=== PATIENT | female | born 1990 | race African-American/Black ===

== ENCOUNTER 2016-12-12 20:06 | Emergency (ER) | payer MEDICAID, SELFPAY ==
[2016-12-12 21:13] LABS: #Basophils 0.1 thou/uL (0.0-0.2); #Eosinphils 0.1 thou/uL (0.0-0.7); #Lymphocytes 2.3 thou/uL (1.20-3.40); #Monocytes 0.5 thou/uL (0.11-0.59); #Neutrophils 5.4 thou/uL (1.40-6.50); %Basophils 0.7 % (0.0-1.0); %Eosinophils 1.1 % (0.0-10.0); %Lymphocytes 28.2 % (21.0-51.0); %Monocytes 5.5 % (0.0-10.0); Hematocrit 36.1 % (36.0-47.0); Mean Platelet Volume 9.1 fL (7.4-10.4); Red Blood Cell (RBC) Count 5.07 mill/uL (4.20-5.40); White Blood Cell (WBC) Count 8.3 thou/uL (4.8-10.8)
[2016-12-12 21:33] LABS: ALT (SGPT) 9 U/L (8-55); AST (SGOT) 12 U/L (5-34); Alkaline Phosphatase 61 U/L (40-150); Anion Gap 14 mmol/L (10-20); BUN (Urea Nitrogen) 10 mg/dL (7.0-18.7); Bilirubin, Total 0.2 mg/dL (0.2-1.2); Calc. Creatinine Clearance 0 mL/min (70-130); Carbon Dioxide 21 mmol/L (22-29); Chloride 105 mmol/L (98-107); Estimated GFR-MDRD Greater than 90; Globulin 3.2 g/dL (2.4-3.5); Lipase 12 U/L (8-78); Protein, Total 7.1 g/dL (6.0-8.3)
[2016-12-12] MEDS ORDERED: Ondansetron HCl/PF 4 MG/2 ML Vial ONE (21:53)
[2016-12-12 22:07] LABS: Bilirubin Negative (Negative); Blood, Urine Negative (Negative); Glucose, Urine (Dipstick) Negative (Negative); Ketone, Urine Negative (Negative); Nitrite Negative (Negative); Protein, Urine (Dipstick) Negative (Neg-Trace)
[2016-12-12 22:10] LABS: Bacteria/HPF None Seen HPF (None Seen); Hyaline Casts/LPF 0-3 HYALINE CAST LPF (0-3 Hyaline)
== END 2016-12-12 23:34 | disposition home or self-care (01) ==
LOC: ERS 20:06
DX: O21.1 Hyperemesis gravidarum with metabolic disturbance (principal); O99.331 Smoking (tobacco) complicating pregnancy, first trimester; F17.210 Nicotine dependence, cigarettes, uncomplicated; Z3A.01 Less than 8 weeks gestation of pregnancy
CPT/HCPCS: 36415; 80053; 81003; 81015; 81025; 83690; 85025; 96361; 96374; J2405

== ENCOUNTER 2017-02-01 19:26 | Emergency (ER) | payer MEDICAID ==
[2017-02-01 20:04] LABS: Bilirubin Negative (Negative); Blood, Urine Negative (Negative); Glucose, Urine (Dipstick) Negative (Negative); Ketone, Urine Negative (Negative); Nitrite Negative (Negative); Protein, Urine (Dipstick) Negative (Neg-Trace)
[2017-02-01 20:07] LABS: Bacteria/HPF None Seen HPF (None Seen); Hyaline Casts/LPF 0-3 HYALINE CAST LPF (0-3 Hyaline); RBC/HPF 0-3 HPF (0-3); WBC/HPF 21-50 HPF (0-3)
== END 2017-02-01 20:53 | disposition left against medical advice (07) ==
LOC: ERS 19:26
DX: Z53.21 Procedure and treatment not carried out due to patient leaving prior to being seen by health care provider (principal)
CPT/HCPCS: 81003; 81015

== ENCOUNTER 2017-02-08 16:07 | Emergency (ER) | payer MEDICAID, OTHER ==
[2017-02-08 17:45] LABS: Bilirubin Negative (Negative); Blood, Urine Negative (Negative); Clarity CLEAR (Clear); Glucose, Urine (Dipstick) Negative (Negative); Leukocyte Small (Negative); Nitrite Negative (Negative); Protein, Urine (Dipstick) Negative (Neg-Trace); Specific Gravity, Urine 1.026 (1.002-1.036); pH, Urine 6.5 (5.0-9.0)
[2017-02-08 17:46] LABS: Pregnancy Test - Urine (BHCG) POSITIVE (Negative)
[2017-02-08 17:47] LABS: Pregu Control Background? CLEAR/WHITE (CLR/WHITE); Pregu Control Bar Appear? YES (CONTROL BAR); Specific Gravity 1.026 (1.002-1.036)
[2017-02-08 17:48] LABS: Bacteria/HPF Rare-Few HPF (None Seen); Hyaline Casts/LPF 4-6 HYALINE CAST LPF (0-3 Hyaline); Pathc Cast-AUWi Flag 0.54 (0-2.49); RBC/HPF 0-3 HPF (0-3); Squamous Epithelial 0-3 HPF (0-3); WBC/HPF 21-50 HPF (0-3)
[2017-02-08 17:49] LABS: ALT (SGPT) 11 U/L (8-55); AST (SGOT) 14 U/L (5-34); Alkaline Phosphatase 68 U/L (40-150); Anion Gap 11 mmol/L (10-20); BUN (Urea Nitrogen) 7 mg/dL (7.0-18.7); Bilirubin, Total 0.3 mg/dL (0.2-1.2); Calc. Creatinine Clearance 0 mL/min (70-130); Calcium 9.8 mg/dL (7.8-10.44); Carbon Dioxide 23 mmol/L (22-29); Chloride 104 mmol/L (98-107); Estimated GFR-MDRD Greater than 90; Globulin 3.8 g/dL (2.4-3.5); Glucose 77 mg/dL (70-105); Potassium 3.8 mmol/L (3.5-5.1); Protein, Total 7.8 g/dL (6.0-8.3); Sodium 134 mmol/L (136-145)
[2017-02-08 17:50] LABS: #Basophils 0.1 thou/uL (0.0-0.2); #Eosinphils 0.1 thou/uL (0.0-0.7); #Lymphocytes 1.3 thou/uL (1.20-3.40); #Monocytes 0.5 thou/uL (0.11-0.59); #Neutrophils 4.7 thou/uL (1.40-6.50); %Basophils 0.8 % (0.0-1.0); %Eosinophils 1.4 % (0.0-10.0); %Lymphocytes 19.2 % (21.0-51.0); %Monocytes 7.8 % (0.0-10.0); %Neutrophils 70.8 % (42.0-75.0); Anisocytosis SLIGHT = 6-15 cells (100X) (0-5/hpf); Hemoglobin 11.9 g/dL (12.0-16.0); MDiff Complete? YES; Mean Corpuscular HGB CONC 31.9 g/dL (32.0-36.0); Mean Corpuscular Hemoglobin 22.7 pg (27.0-31.0); Mean Corpuscular Volume 71.1 fl (81.0-99.0); Mean Platelet Volume 9.9 fL (7.4-10.4); Microcytosis SLIGHT = 6-15 cells (100X) (0-5/hpf); Ovalocytes SLIGHT = 2-5 cells (100X) (0-1/hpf); Platelet Count 284 thou/uL (130-400); Poikilocytosis SLIGHT = 6-15 cells (100X) (0-5/hpf); Polychromasia SLIGHT = 2-3 cells (100X) (0-2/hpf); RBC Distribution Width 15.4 % (11.5-14.5); Red Blood Cell (RBC) Count 5.26 mill/uL (4.20-5.40); White Blood Cell (WBC) Count 6.6 thou/uL (4.8-10.8)
[2017-02-08] MEDS ORDERED: Metoclopramide HCl 10 MG/2 ML VIAL ONE (19:07)
== END 2017-02-08 20:26 | disposition home or self-care (01) ==
LOC: ERS 16:07
DX: O21.9 Vomiting of pregnancy, unspecified (principal); O99.331 Smoking (tobacco) complicating pregnancy, first trimester; F17.210 Nicotine dependence, cigarettes, uncomplicated; Z3A.13 13 weeks gestation of pregnancy
CPT/HCPCS: 36415; 80053; 81003; 81015; 81025; 83690; 85025; 87086; 87804; 96365; J2765

== ENCOUNTER 2017-03-26 18:12 | Emergency (ER) | payer MEDICAID, OTHER ==
[2017-03-26 18:49] LABS: #Eosinphils 0.1 thou/uL (0.0-0.7); #Lymphocytes 1.6 thou/uL (1.20-3.40); #Monocytes 0.8 thou/uL (0.11-0.59); #Neutrophils 9.7 thou/uL (1.40-6.50); %Basophils 0.1 % (0.0-1.0); %Eosinophils 0.6 % (0.0-10.0); %Lymphocytes 13.2 % (21.0-51.0); %Monocytes 6.6 % (0.0-10.0); %Neutrophils 79.5 % (42.0-75.0); Hemoglobin 11.3 g/dL (12.0-16.0); Mean Corpuscular HGB CONC 31.5 g/dL (32.0-36.0); Mean Corpuscular Hemoglobin 22.5 pg (27.0-31.0); Mean Corpuscular Volume 71.3 fl (81.0-99.0); Mean Platelet Volume 9.9 fL (7.4-10.4); Platelet Count 292 thou/uL (130-400); RBC Distribution Width 15.4 % (11.5-14.5); Red Blood Cell (RBC) Count 5.02 mill/uL (4.20-5.40); White Blood Cell (WBC) Count 12.1 thou/uL (4.8-10.8)
[2017-03-26 19:10] LABS: ALT (SGPT) 11 U/L (8-55); AST (SGOT) 13 U/L (5-34); Albumin 3.7 g/dL (3.5-5.0); Alkaline Phosphatase 84 U/L (40-150); Anion Gap 12 mmol/L (10-20); BUN (Urea Nitrogen) 9 mg/dL (7.0-18.7); Bilirubin, Total 0.2 mg/dL (0.2-1.2); Calc. Creatinine Clearance 0 mL/min (70-130); Calcium 9.3 mg/dL (7.8-10.44); Carbon Dioxide 24 mmol/L (22-29); Chloride 104 mmol/L (98-107); Estimated GFR-MDRD Greater than 90; Globulin 3.8 g/dL (2.4-3.5); Glucose 78 mg/dL (70-105); Potassium 3.8 mmol/L (3.5-5.1); Protein, Total 7.5 g/dL (6.0-8.3); Sodium 136 mmol/L (136-145)
[2017-03-26 20:10] LABS: Bilirubin Negative (Negative); Blood, Urine Negative (Negative); Clarity CLOUDY (Clear); Glucose, Urine (Dipstick) Negative (Negative); Leukocyte Moderate (Negative); Nitrite Negative (Negative); Protein, Urine (Dipstick) Trace mg/dL (Neg-Trace); Specific Gravity, Urine 1.031 (1.002-1.036)
[2017-03-26 20:13] LABS: Bacteria/HPF 1+ HPF (None Seen); Hyaline Casts/LPF 4-6 HYALINE CAST LPF (0-3 Hyaline); Pathc Cast-AUWi Flag 0.27 (0-2.49); WBC/HPF 21-50 HPF (0-3)
--- NOTE | 2017-04-07 18:02 | EKG ---
Test Reason : LIGHTHEADEDNESS Blood Pressure : / mmHG Vent. Rate : 069 BPM Atrial Rate : 069 BPM P-R Int : 142 ms QRS Dur : 072 ms QT Int : 348 ms P-R-T Axes : 063 -03 005 degrees QTc Int : 372 ms Normal sinus rhythm Cannot rule out Anterior infarct , age undetermined Abnormal ECG Confirmed by KENYA VILLA, RAYNA ([id number]), senior editor JUDAH GASTON ([id number]) on 04/07/2017 6:02:06 PM Referred By: TRIAGE Confirmed By:RAYNA ZAMBRANO MD
== END 2017-03-26 21:34 | disposition home or self-care (01) ==
LOC: ERS 18:12
DX: E86.0 Dehydration (principal); R55 Syncope and collapse; F17.210 Nicotine dependence, cigarettes, uncomplicated
CPT/HCPCS: 36415; 80053; 81003; 81015; 82550; 84702; 85025; 87086; 93005

== ENCOUNTER 2017-04-09 07:32 | Emergency (ER) | payer OTHER ==
[2017-04-09] MEDS ORDERED: Lidocaine 1% (PF) 30 ML VIAL ONE (08:08)
[2017-04-09] MEDS ORDERED: Adacel (T-DAP) 0.5 ML VIAL ONE (08:17)
== END 2017-04-09 09:46 | disposition home or self-care (01) ==
LOC: ERS 07:32
DX: L02.211 Cutaneous abscess of abdominal wall (principal); F17.210 Nicotine dependence, cigarettes, uncomplicated; Z79.82 Long term (current) use of aspirin
CPT/HCPCS: 10061; 90471; 90715; J2001

== ENCOUNTER 2017-04-23 18:26 | Day surgery (SDC) | payer OTHER ==
[2017-04-23 18:56] VITALS: BMI 36.8
--- NOTE | 2017-04-23 19:47 | PDOC.LDHP ---
Labor and Delivery H&P Chief complaint: abdominal pain HPI: This is a 26 y/o @ 23.4 WGA who presents for cramping abdominal pain. The patient reports that she has had cramping type pain in her lower abdomen since having sex last night. She also reports pain in her vaginal area. She describes the sex as painful. She denies any vaginal discharge, vaginal bleeding, loss of fluid, decreased movement. She has not had any vision changes, N/V, upper abdominal pain, or leg swelling. Current gestational age (weeks): 23 (4 days) Due date: 08/16/17 Grav: 2 Para: 1 OB History Details: First ended in a term 2/2 an eclamptic seizure. The patient has had some elevated BP during this as well. Current complications: gestational hypertension Abnormal US findings: No Past Medical History: None Current medications: pre- vitamins, other (aspirin) Previous surgical history: low tranverse CS Allergies/Adverse Reactions: Allergies Allergy/AdvReac Type Severity Reaction Status Date / Time No Known Allergies Allergy Verified 04/23/17 18:51 Social history: tobacco use (2 cigarettes per day since 19 years old) - Physical Exam Vital signs reviewed and normal: yes General: NAD Heart: RRR Lungs: CTAB Abdomen: gravid Extremeties: no edema FHT: category 1, variability present [place] contractions every: None - Vaginal Exam cm dilated: 0 Effacement: 0% Station: -3 - OB Labs Blood type: unknown RH: unknown Antibody Screen: unknown HIV: unknown RPR: unknown HEPSAg: unknown 1 hour GCT: unknown 3 hour GTT: unknown GBS: unknown - Assessment This is a 26 y/o @ 23.4 WGA who presents for cramping abdominal pain after sex. Will r/o PTL. - Plan -: R/O pre-term labor, the patient's cervical check was closed/thick/and high. Her cervical length was 3.8 cm on ultrasound. FFN could not be checked as the patient has had sex within the past 24 hours. -VP3 -UA -NST dispo: likely home pending results of UA and VP3
[2017-04-23 20:10] LABS: Bilirubin Negative (Negative); Blood, Urine Negative (Negative); Clarity CLEAR (Clear); Glucose, Urine (Dipstick) Negative (Negative); Leukocyte Trace (Negative); Nitrite Negative (Negative); Protein, Urine (Dipstick) Negative (Neg-Trace); Specific Gravity, Urine 1.015 (1.002-1.036)
[2017-04-23 20:13] LABS: Bacteria/HPF None Seen HPF (None Seen); Hyaline Casts/LPF 0-3 HYALINE CAST LPF (0-3 Hyaline); RBC/HPF 0-3 HPF (0-3); Squamous Epithelial 0-3 HPF (0-3); WBC/HPF 0-3 HPF (0-3)
--- NOTE | 2017-04-23 20:39 | ULT ---
OB ULTRASOUND: History: 23-week with cramping. FINDINGS: Single viable intrauterine noted. Gestational age by ultrasound 24 weeks 4 days. The biomet ry measurements are consistent. heart rate: 150 beats/minute Placenta: Posterior Presentation: Vertex Amniotic fluid: Adequate MIRZA: Recorded at 8.8 cm Cervical length: 3.8 cm Limited anatomy evaluation. Visualized intracranial contents, four chamber heart, stomach, kidn eys, cord insertion, bladder and three vessel cord were all imaged. IMPRESSION: 24 week 4 day gestation by ultrasound measurement. No abnormality identified. POS: [facility]
== END 2017-04-23 21:30 | disposition home or self-care (01) ==
LOC: L&D/OP 18:26
PROVIDERS: ATTEND Obstetrics & Gynecology
DX: O99.89 Other specified diseases and conditions complicating pregnancy, childbirth and the puerperium (principal); R10.30 Lower abdominal pain, unspecified; R10.2 Pelvic and perineal pain; O13.2 Gestational [pregnancy-induced] hypertension without significant proteinuria, second trimester; O99.332 Smoking (tobacco) complicating pregnancy, second trimester; F17.210 Nicotine dependence, cigarettes, uncomplicated; Z79.82 Long term (current) use of aspirin; Z79.899 Other long term (current) drug therapy; Z3A.23 23 weeks gestation of pregnancy
CPT/HCPCS: 76815; 81001; 87480; 87510; 87660; 99285

== ENCOUNTER 2017-06-06 17:00 | Emergency (ER) | payer OTHER ==
[2017-06-06 19:29] LABS: Bilirubin Negative (Negative); Blood, Urine Negative (Negative); Clarity CLEAR (Clear); Glucose, Urine (Dipstick) Negative (Negative); Leukocyte Moderate (Negative); Nitrite Negative (Negative); Protein, Urine (Dipstick) Negative (Neg-Trace); Specific Gravity, Urine 1.025 (1.002-1.036)
[2017-06-06 19:31] LABS: Bacteria/HPF Rare-Few HPF (None Seen); Hyaline Casts/LPF 4-6 HYALINE CAST LPF (0-3 Hyaline); Pathc Cast-AUWi Flag 0.72 (0-2.49); Squamous Epithelial 0-3 HPF (0-3); WBC/HPF 21-50 HPF (0-3)
[2017-06-06 20:22] LABS: Hemoglobin 10.7 g/dL (12.0-16.0); Mean Corpuscular HGB CONC 31.9 g/dL (32.0-36.0); Mean Corpuscular Volume 69.1 fl (81.0-99.0); Platelet Count 260 thou/uL (130-400); RBC Distribution Width 16.3 % (11.5-14.5); Red Blood Cell (RBC) Count 4.85 mill/uL (4.20-5.40); White Blood Cell (WBC) Count 10.3 thou/uL (4.8-10.8)
[2017-06-06 20:36] LABS: Anion Gap 13 mmol/L (10-20); BUN (Urea Nitrogen) 7 mg/dL (7.0-18.7); Calc. Creatinine Clearance 0 mL/min (70-130); Carbon Dioxide 21 mmol/L (22-29); Chloride 105 mmol/L (98-107); Estimated GFR-MDRD Greater than 90; Glucose 99 mg/dL (70-105); Potassium 3.7 mmol/L (3.5-5.1); Sodium 135 mmol/L (136-145)
[2017-06-06 20:41] LABS: #Eosinphils 0.1 thou/uL (0.0-0.7); #Lymphocytes 1.8 thou/uL (1.20-3.40); #Monocytes 0.5 thou/uL (0.11-0.59); #Neutrophils 7.9 thou/uL (1.40-6.50); %Basophils 0.3 % (0.0-1.0); %Eosinophils 0.6 % (0.0-10.0); %Lymphocytes 17.6 % (21.0-51.0); %Monocytes 4.5 % (0.0-10.0); %Neutrophils 76.9 % (42.0-75.0); MDiff Complete? YES; Microcytosis SLIGHT = 6-15 cells (100X) (0-5/hpf); PLT Morphology Comment Appears Adequate; Schistocytes SLIGHT = 2-5 cells (100X) (0-1/hpf)
== END 2017-06-06 20:16 | disposition left against medical advice (07) ==
LOC: ERS 17:00
DX: O26.813 Pregnancy related exhaustion and fatigue, third trimester (principal); O99.333 Smoking (tobacco) complicating pregnancy, third trimester; F17.210 Nicotine dependence, cigarettes, uncomplicated; Z3A.29 29 weeks gestation of pregnancy
CPT/HCPCS: 80048; 81003; 81015; 85025; 99284

== ENCOUNTER 2017-06-18 17:20 | Day surgery (SDC) | payer OTHER ==
[2017-06-18 17:56] VITALS: BP 110/64; TEMP 98.5; BMI 39.4
--- NOTE | 2017-06-18 18:53 | PDOC.LDHP ---
Labor and Delivery H&P Chief complaint: other (Dizziness, Elevated BP at work) HPI: 26 year old at 31.4 wks by 9.0 wk ultrasound with RIA of 08/16/2017 presents with dizziness and elevated BP at work. Patient states she had her BP checked by the nurse and it was noted to be 161/100. Since being on L&D her BP' s have been within normal range. This has happened once before in this current and she had a preeclampsia workup done at that time which was negative. Currently, patient denies any lightheadedness, RUQ pain, headache, vision changes, or edema. She does have a history of eclampsia in her prior . She has been on ASA therapy since early in . ROS: General: Endorses fatigue. Denies fever or chills. HEENT: Denies vision changes, nasal congestion, rhinorrhea Cards: Denies chest pain or palpitations. Endorses history of heart murmur. Resp: Denies cough or shortness of breath : Denies dysuria. Endorses increased urinary frequency. 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 Endorses white vaginal discharge and itching in vaginal area. Psych: Denies anxiety or depression. Current gestational age (weeks): 31 (31.4) Due date: 08/16/17 Dating criteria: first trimester ultrasound (9.0 wk) Grav: 2 Para: 1 OB History Details: 1. Hx of eclampsia in 2. Prior C/S 3. Anemia of Current complications: other (anemia of ) Abnormal US findings: No Current medications: pre-marlo vitamins, other (ASA) Previous surgical history: low tranverse CS Allergies/Adverse Reactions: Allergies Allergy/AdvReac Type Severity Reaction Status Date / Time No Known Allergies Allergy Verified 06/18/17 17:56 Social history: none - Physical Exam Vital signs reviewed and normal: yes (BP 107/59) General: NAD, resting Heart: RRR Lungs: nonlabored breathing Abdomen: gravid Extremeties: no edema FHT: category 1, variability present [place] contractions every: none - OB Labs Blood type: O RH: positive Antibody Screen: negative HIV: negative RPR: negative HEPSAg: negative 1 hour GCT: negative GBS: unknown Rubella: immune - Assessment 1. Elevated BP readings with history of eclampsia in prior 2. Vaginal itching - Plan Plan: observation in L&D -: Elevated BP readings with history of eclampsia in prior - UA to evaluate for urine infection - Urine protein dipstick - NST reassuring; category I strip - BP since being on L&D has been nml Vaginal itching - VP3 pending - Will call patient with results and treat as necessary Dispo: Will await results of urine dipstick. If urine protein is trace, then will discharge pt home with precautions. Will call patient with results of VP3 and treat accordingly.
[2017-06-18 19:34] LABS: Bilirubin Negative (Negative); Blood, Urine Negative (Negative); Clarity TURBID (Clear); Glucose, Urine (Dipstick) Negative (Negative); Leukocyte Small (Negative); Nitrite Negative (Negative); Protein, Urine (Dipstick) Trace mg/dL (Neg-Trace); Specific Gravity, Urine 1.024 (1.002-1.036); pH, Urine 7.5 (5.0-9.0)
[2017-06-18 19:35] LABS: Bacteria/HPF None Seen HPF (None Seen); Hyaline Casts/LPF 4-6 HYALINE CAST LPF (0-3 Hyaline); Pathc Cast-AUWi Flag 0.43 (0-2.49)
[2017-06-18 19:46] LABS: Crystals/HPF 2+ AMORPH PHOS HPF (Negative)
[2017-06-18 19:47] LABS: Renal Epithelial None Seen HPF (0-3); Transitional Epithelial NONE SEEN HPF (0-3)
[2017-06-21 10:24] LABS: Chlamydia trachomatis by NAA Negative (Negative)
== END 2017-06-18 20:15 | disposition home or self-care (01) ==
LOC: L&D/OP 17:20
PROVIDERS: ATTEND Obstetrics & Gynecology
DX: O99.89 Other specified diseases and conditions complicating pregnancy, childbirth and the puerperium (principal); R03.0 Elevated blood-pressure reading, without diagnosis of hypertension; O99.013 Anemia complicating pregnancy, third trimester; D64.9 Anemia, unspecified; Z87.59 Personal history of other complications of pregnancy, childbirth and the puerperium; Z3A.31 31 weeks gestation of pregnancy; Z79.82 Long term (current) use of aspirin; Z79.899 Other long term (current) drug therapy; Z98.891 History of uterine scar from previous surgery
CPT/HCPCS: 81003; 81015; 87480; 87491; 87510; 87591; 87660; 99284

== ENCOUNTER 2017-06-21 19:16 | Day surgery (SDC) | payer OTHER ==
[2017-06-21] MEDS ORDERED: metroNIDAZOLE 500 MG TAB PO SCH (19:45)
[2017-06-21 20:02] VITALS: BMI 39.4
[2017-06-21 20:02] LABS: Amnisure Internal Control QC ACCEPTABLE (ACCEPTABLE); Amnisure Test No Membranes Rupture (No Rupture)
--- NOTE | 2017-06-21 20:37 | PRG ---
DATE OF SERVICE: 06/21/2017 PRIMARY OB: Clinic. HISTORY OF PRESENT ILLNESS: The patient is a 26-year-old G2, P1 female with an intrauterine pregnanc y at 32 weeks who was brought to the ER by EMS after experiencing some sudden leakage of fluid at formerly [facility]. Upon arrival, the patient reported that outside the single episode, she is not leaking fluid any longer. Denies any uterine contractions, vaginal bleeding. She does report some discomfort and pres sure with activity. The patient reports she was here a couple days ago, was diagnosed with a yeast i nfection and Trichomonas, but has not started her antibiotic, but did start her Monistat. The patien t reports that she had a child delivered by after an eclamptic seizure at term with her pre vious . She denies any past medical problems. PAST SURGICAL HISTORY: Includes a . ALLERGIES: No known drug allergies. MEDICATIONS: vitamins, Monistat and Flagyl not started yet. OB LABS: Unavailable at time of dictation. REVIEW OF SYSTEMS: Patient denies fall, headache. She does report some shortness of breath. Denies chest pain, denies nausea, vomiting, denies diarrhea, constipation. Denies hip problems, knee probl ems, muscle problems. Denies vaginal bleeding or leakage of fluid. Denies urinary urgency or freque ncy. PHYSICAL EXAMINATION: VITAL SIGNS: Blood pressure is 113/68, heart rate of 73, satting 100% on room air, respiratory rate 20. GENERAL: She appears to be in no acute distress. She is alert and oriented, cooperative and pleasan t to interact with. HEENT: Head is normocephalic, atraumatic. CHEST: Clear to auscultation bilaterally. HEART: Regular rate and rhythm. ABDOMEN: Soft, gravid, nontender, and obese. EXTREMITIES: Nontender, nonedematous. PELVIC: Vulva is without mass lesions or erythema. She does have a curd-like discharge in her vagin a on speculum exam and some minimal fluid. She has no leakage of fluid on Valsalva. On cervical exa m, cervix is closed and thick. heart tracing performed for abdominal pain and leakage of fluid. Baseline is noted to be in th e 140s with moderate long-term variability, positive accelerations, no decelerations. She has some i rritability noted on the monitor, but not felt by the patient. AmniSure test is negative. ASSESSMENT AND PLAN: Patient is a 26-year-old G2, P1 female with an intrauterine at 32 wee ks with leakage of fluid at work. There is no evidence of rupture of membranes at this time. Fetus is reassuring. AmniSure test is negative. Patient has been given a dose of Flagyl while she was her e and has been encouraged to crab picker a prescription on her way home today for the Trichomonas. She h as been counseled that her partner needs to be treated completely before having intercourse again to minimize the risk of transmission and reinfection. Patient is being discharged to home.
== END 2017-06-21 20:24 | disposition home or self-care (01) ==
LOC: L&D/OP 19:16
PROVIDERS: ATTEND Obstetrics & Gynecology
DX: O99.89 Other specified diseases and conditions complicating pregnancy, childbirth and the puerperium (principal); O98.313 Other infections with a predominantly sexual mode of transmission complicating pregnancy, third trimester; A59.9 Trichomoniasis, unspecified; O98.813 Other maternal infectious and parasitic diseases complicating pregnancy, third trimester; B37.9 Candidiasis, unspecified; Z79.899 Other long term (current) drug therapy; Z3A.32 32 weeks gestation of pregnancy
CPT/HCPCS: 84112; 99285

== ENCOUNTER 2017-07-07 01:00 | Day surgery (SDC) | payer OTHER ==
[2017-07-07 01:51] VITALS: BP 118/64; TEMP 98.4; BMI 41.1
--- NOTE | 2017-07-07 02:42 | PDOC.LDHP ---
Labor and Delivery H&P Chief complaint: other (few small blood clots) HPI: Ole Butcher is a 26 year old at 34.2 wks by 1T US who presents today with complaints of passing blood clots after urinating at home today. She states that the blood clots are blueberry sized and there were just a few of them. When she wiped, she had a couple smaller clots and a few streaks of blood. She denies any abdominal pain, contractions, loss of fluid, vaginal discharge. She has + FM. When she arrived here and went to the restroom, she had no more blood clots and only small streaks with wiping. She otherwise feels great and states that she is ready to go home. Current gestational age (weeks): 34 (34.2) Due date: 08/16/17 Dating criteria: first trimester ultrasound Grav: 2 Para: 1 (1001) OB History Details: First resulted in LTCS 2/2 eclamptic seizure with no prior history of elevated BP during the Current complications: none Abnormal US findings: No Past Medical History: None Current medications: pre-marlo vitamins, other (Metronidazole for Trich, dianosed about 2 weeks ago) Previous surgical history: low tranverse CS Social history: tobacco use (1 cigarette/day) - Physical Exam Vital signs reviewed and normal: yes (BP 107/58) General: NAD, resting, breathing through contractions Heart: RRR Lungs: CTAB Abdomen: gravid Extremeties: no edema FHT: category 1 [place] contractions every: no contractions - Vaginal Exam cm dilated: 0 Effacement: 0% - OB Labs Blood type: O RH: positive Antibody Screen: negative HIV: negative RPR: negative HEPSAg: negative 1 hour GCT: negative (86) GBS: unknown Rubella: immune - Assessment Third trimester vaginal bleeding - Plan -: (1) Third Trimester Vaginal Bleeding - Minimal vaginal bleeding that resolved in the L&D, no contractions, no LOF, no vaginal discharge - Sterile spec exam showed closed, thick cervix, no bright red blood - Likely secondary to residual cervicitis from trich infection - Instructed to return if bleeding returns or if she experiences abd pain - Discharge home, keep scheduled follow up appointment with PCP at [facility] <Benjamin Marx - Last Filed: 07/07/17 02:33> <Dominic Rowe - Last Filed: 07/07/17 04:05> Allergies/Adverse Reactions: Allergies Allergy/AdvReac Type Severity Reaction Status Date / Time No Known Allergies Allergy Verified 06/21/17 19:57 Attending Addendum - Attending Addendum Date/Time: 07/07/17 0404 I evaluated the patient and discussed the management with Dr. Marx. I agree with the History, Examination, Assessment and Plan. <Dominic Rowe - Last Filed: 07/07/17 04:05>
== END 2017-07-07 02:58 | disposition home or self-care (01) ==
LOC: L&D/OP 01:00
PROVIDERS: ATTEND Obstetrics & Gynecology
DX: O46.93 Antepartum hemorrhage, unspecified, third trimester (principal); O98.313 Other infections with a predominantly sexual mode of transmission complicating pregnancy, third trimester; A59.09 Other urogenital trichomoniasis; O99.333 Smoking (tobacco) complicating pregnancy, third trimester; F17.210 Nicotine dependence, cigarettes, uncomplicated; Z3A.34 34 weeks gestation of pregnancy; Z79.899 Other long term (current) drug therapy; Z79.2 Long term (current) use of antibiotics

== ENCOUNTER 2017-07-15 11:56 | Day surgery (SDC) | payer OTHER ==
[2017-07-15 12:59] VITALS: BMI 41.1
--- NOTE | 2017-07-15 13:58 | PDOC.LDHP ---
Labor and Delivery H&P Chief complaint: abdominal pain HPI: Patient comes in for abdominal pain which starts in the back and radiates around to the front, it started about 2 am this morning. She denies bleeding or christensen of fluid. She feels the baby moving often. No burning with urination. She was treated for trichomonas a 1-2 weeks ago per her report. She came in one week ago for evaluation after passing blueberry sized clots, has not had bleeding since this time. Current gestational age (weeks): 35 (35wk 3 d) Dating criteria: first trimester ultrasound Grav: 2 Para: 1 OB History Details: 1st baby by C/S 2/2 eclamptic seizure, this was 11 years ago IOB labs normal, hgb 10.1 treated for trichomonas 1-2 weeks ago per patient smokes 2 cigarrettes per day Current complications: none Abnormal US findings: No Current medications: pre-marlo vitamins, other (ASA 81mg) Social history: tobacco use (2 cigarettes per day) - Physical Exam Vital signs reviewed and normal: yes General: NAD Heart: RRR Lungs: nonlabored breathing Abdomen: NTTP Extremeties: trace edema (ankles bilaterally) FHT: category 1 [place] contractions every: 1 contraction since visiting L&D - Vaginal Exam cm dilated: 0 Effacement: 0% Station: -3 - OB Labs Antibody Screen: negative HIV: negative RPR: negative HEPSAg: negative 1 hour GCT: negative Urine drug screen: negative Rubella: immune - Assessment 27 yo F at 35wk 3 days not in labor - Plan Plan: other -: F/u in clinic w/ Dr. Grossman this week Continue vitamin, ASA Will f/u on result of VP3 Return for evaluation if patient develops fever, contractions <10 min apart, bleeding, or christensen of fluid. <Regan Edwards - Last Filed: 07/15/17 13:55> <Alanna Mann - Last Filed: 07/15/17 18:05> Allergies/Adverse Reactions: Allergies Allergy/AdvReac Type Severity Reaction Status Date / Time No Known Allergies Allergy Verified 06/21/17 19:57 Attending Addendum - Attending Addendum Date/Time: 07/15/17 0792 I personally evaluated the patient and discussed the management with Dr. Edwards. I agree with the History, Examination, Assessment and Plan documented above. <Alanna Mann - Last Filed: 07/15/17 18:05>
--- NOTE | 2017-07-15 17:03 | PDOC.EVN ---
Event Note - Event Note Event Note: VP3 showed positive Trichomonas, asymptomatic candidiasis Will treat trichomonas, called patient to inform her to have partner be checked and treated as well Sent Flagyl 1g BID for 1 day
== END 2017-07-15 14:40 | disposition home or self-care (01) ==
LOC: L&D/OP 11:56
PROVIDERS: ATTEND Obstetrics & Gynecology
DX: O98.813 Other maternal infectious and parasitic diseases complicating pregnancy, third trimester (principal); O99.333 Smoking (tobacco) complicating pregnancy, third trimester; A59.9 Trichomoniasis, unspecified; Z3A.35 35 weeks gestation of pregnancy
CPT/HCPCS: 87480; 87510; 87660; 99283

== ENCOUNTER 2017-08-06 05:19 | Inpatient (IN) | payer OTHER ==
[2017-08-06 05:52] VITALS: BMI 42.4
[2017-08-06] MEDS ORDERED: Promethazine HCl 25 MG/ML VIAL IM PRN ×2 (06:40→08:32)
[2017-08-06] MEDS ORDERED: Ondansetron HCl/PF 4 MG/2 ML Vial IVP PRN ×3 (06:40→08:32)
[2017-08-06] MEDS ORDERED: Lactated Ringer's 1,000 ML IV SCH (06:45)
[2017-08-06] MEDS ORDERED: Butorphanol Tartrate 1 MG/ML VIAL SLOW IVP PRN (06:54)
[2017-08-06] MEDS ORDERED: Acetaminophen 500 MG TAB PO PRN (06:54)
[2017-08-06] MEDS ORDERED: CEFAZOLIN/Water 2 GM/20 ML SYRINGE SLOW IVP SCH (07:00)
--- NOTE | 2017-08-06 07:03 | PDOC.LDHP ---
Labor and Delivery H&P Chief complaint: contractions HPI: 27 yo @ 38.4 by 9 week us presents for painful contractions since last evening that have been increasing in frequency and strength over the last 2 hours. Previous resulted in c section 2/2 eclampsia. Some mildly elevated BP so far this , but otherwise less than 130/80. Today reports movement, denies headache, changes in vision, nvdc, epigastric/ ruq abdominal pain, denies lof and vaginal pain/bleeding. Current gestational age (weeks): 38 (+4) Due date: 08/16/17 Dating criteria: first trimester ultrasound (9.0 week US) Grav: 2 Para: 1 Current complications: none Abnormal US findings: No Current medications: pre-marlo vitamins, other (aspirin d/c 1 month ago) Previous surgical history: low tranverse CS Social history: none - Physical Exam Abnormal vital signs: elevated BP General: other (mildly distressed, uncomfortable with contractions) Heart: RRR Lungs: nonlabored breathing Abdomen: NTTP Extremeties: other (pateller reflexes 3+, no clonus) FHT: category 2, absent or minimal variables (baseline HR 140) [place] contractions every: 5 min - Vaginal Exam cm dilated: 1 Effacement: 0% Station: -3 - OB Labs Blood type: O RH: positive Antibody Screen: negative HIV: negative RPR: negative HEPSAg: negative 1 hour GCT: negative GBS: unknown Urine drug screen: not done Rubella: immune - Assessment L&D Assessment: term patient in labor - Plan Plan: admit to L&D, to OR for section, informed consent obtained, anesthesia consult for pain management -: 1) TIUP in labor: -admit to l&d to OR for repeat section, was scheduled for repeat CS in 3 days and previously counseled on vs repeat CS; desires repeat CS - pt had elevated BP with new onset LE pitting edema, check CMP, CBC, urine protein/creatinine; no severe features - mag if indicated - pre-operative abx ordered - 1L LR - POC bedside US showed posterior/fundal placenta, vertex presentation, fluid pocket >2cm and good heart movement -cat 2 2/2 period of minimal variability baseline 140 w/o late deceleration or variable decels 2) Elevated BP w/ h/o eclampsia - Pre e labs ordered - To OR for delivery -anesthesia for repeat c section consulted <Kamlesh Mir - Last Filed: 08/06/17 07:30> <Dominic Rowe - Last Filed: 08/06/17 08:39> Allergies/Adverse Reactions: Allergies Allergy/AdvReac Type Severity Reaction Status Date / Time No Known Allergies Allergy Verified 06/21/17 19:57 Attending Addendum - Attending Addendum Date/Time: 08/06/17 0839 I personally evaluated the patient and discussed the management with Dr. Mir I agree with the History, Examination, Assessment and Plan and will proceed with repeat C/S.. <Dominic Rowe - Last Filed: 08/06/17 08:39>
[2017-08-06] MEDS ORDERED: Bicitra 30 ML UDCUP ONE (07:18)
--- NOTE | 2017-08-06 07:18 | PDOC.EVN ---
Event Note - Event Note Event Note: at 38 weeks with h/o previous presents with painful UCs and nonreassuring FHTs. Will proceed with repeat C/S. Consent on chart.
[2017-08-06] MEDS ORDERED: Fentanyl 100 MCG/2 ML VIAL ONE (07:29)
[2017-08-06] MEDS ORDERED: Morphine PF 1 MG/ML SYR ONE (07:29)
[2017-08-06] MEDS ORDERED: Oxytocin 10 UNITS/ML VIAL ONE (07:30)
[2017-08-06] MEDS ORDERED: PHENYLEPHRINE-NS 100 MCG/ML 10 ML SYRINGE ONE (07:30)
[2017-08-06] MEDS ORDERED: Bupivacaine 0.75% W/DEXTROSE 8.25% 2 ML AMP ONE (07:30)
[2017-08-06] MEDS ORDERED: Lidocaine 1% PF 5 ML VIAL ONE (07:30)
[2017-08-06] MEDS ORDERED: Ketorolac Tromethamine 30 MG/ML VIAL ONE ×2 (07:31→12:30)
[2017-08-06 07:32] LABS: Hemoglobin 10.3 g/dL (12.0-16.0); Mean Corpuscular HGB CONC 31.5 g/dL (32.0-36.0); Mean Corpuscular Hemoglobin 21.4 pg (27.0-31.0); Mean Corpuscular Volume 67.8 fL (78.0-98.0); Mean Platelet Volume 7.5 fL (7.4-10.4); Platelet Count 217 thou/uL (130-400); RBC Distribution Width 19.1 % (11.5-14.5); White Blood Cell (WBC) Count 10.6 thou/uL (4.8-10.8)
[2017-08-06 07:40] LABS: Bilirubin Negative (Negative); Blood, Urine Negative (Negative); Clarity CLEAR (Clear); Glucose, Urine (Dipstick) Negative (Negative); Leukocyte Moderate (Negative); Nitrite Negative (Negative); Protein, Urine (Dipstick) 30 mg/dL (Neg-Trace); Specific Gravity, Urine 1.026 (1.002-1.036); pH, Urine 6.5 (5.0-9.0)
[2017-08-06 07:42] LABS: RBC/HPF 0-3 HPF (0-3)
[2017-08-06 07:57] LABS: ALT (SGPT) 22 U/L (8-55); AST (SGOT) 19 U/L (5-34); Albumin 3.2 g/dL (3.5-5.0); Alkaline Phosphatase 221 U/L (40-150); Anion Gap 16 mmol/L (10-20); BUN (Urea Nitrogen) 8 mg/dL (7.0-18.7); Bilirubin, Total 0.2 mg/dL (0.2-1.2); Calc. Creatinine Clearance 198 mL/min (70-130); Calcium 9.1 mg/dL (7.8-10.44); Carbon Dioxide 19 mmol/L (22-29); Chloride 107 mmol/L (98-107); Estimated GFR-MDRD Greater than 90; Globulin 3.4 g/dL (2.4-3.5); Glucose 96 mg/dL (70-105); Potassium 4.7 mmol/L (3.5-5.1); Protein, Total 6.6 g/dL (6.0-8.3); Sodium 137 mmol/L (136-145)
[2017-08-06 08:14] LABS: HBSAg Index 0.16 S/CO (0-0.99); Hep B Surf Ag Non-Reactive S/CO (NonReactive); Syphilis Antibody Nonreactive (Nonreactive); Syphilis Antibody Index 0.06 S/CO (<1.00 Non-Reactive)
[2017-08-06 08:17] LABS: Bacteria/HPF 1+ HPF (None Seen); Hyaline Casts/LPF 0-3 HYALINE CAST LPF (0-3 Hyaline)
[2017-08-06 08:18] LABS: Crystals/HPF None Seen HPF (Negative)
[2017-08-06] MEDS ORDERED: Promethazine HCl 25 MG/ML VIAL ONE (08:18)
[2017-08-06 08:27] LABS: HBSAg Index 0.09 S/CO (0-0.99); HIV (1/2) Antibody/Antigen Non-Reactive (NonReactive); HIV 1/2 INDEX 0.08 S/CO (<1.00); Hep B Surf Ag Non-Reactive S/CO (NonReactive)
[2017-08-06] MEDS ORDERED: Acetaminophen 1,000 MG in Premix Bag 1 BAG IVPB PRN (08:32)
[2017-08-06] MEDS ORDERED: Promethazine HCl 25 MG SUPP PR PRN (08:32)
[2017-08-06] MEDS ORDERED: Eucerin (Mineral Oil/Petrolatum,White) 30 gm Jar TOP PRN (08:32)
[2017-08-06] MEDS ORDERED: Naloxone HCl 0.4 mg/ml Vial IV PRN (08:32)
[2017-08-06] MEDS ORDERED: Naloxone HCl 0.4 mg/ml Vial IVP PRN ×2 (08:32)
[2017-08-06] MEDS ORDERED: diphenhydrAMINE 50 MG/ML VIAL IVP PRN (08:32)
[2017-08-06] MEDS ORDERED: Communication Order-Pharmacy FS SCH (08:45)
[2017-08-06 08:57] LABS: Creatinine, Urine 277.72 mg/dL (47-110)
--- NOTE | 2017-08-06 09:19 | PDOC.OP ---
Operative Note - Operative Note Operative Note: Procedure: Repeat low transverse caesarean section Preoperative Diagnosis: 1)Term intrauterine , in labor 2)Previous x 1 3)Non-reassuring FHTs with minimal variability 4)Elevated blood pressures 5)H/O Eclampsia Postoperative Diagnosis: 1)same as above Anesthesia: spinal Indications: The patient is a 27yo at 38 weeks 4 days gestation who presented to [facility] with painful regular contractions. Upon arrival, pt was noted to have elevated BPs in the 145/90s and a single SBP 160s. Additionally, noted to have minimal variability on heart monitoring. Pt was scheduled for RLTCS on 08/09 at 39wks 0days. Procedure in Detail: After risks, benefits, and alternatives were explained to the patient, she gave informed consent. Pre-operative antibiotics included Cefazolin 2 gram IV. The patient was taken to the operating room and spinal anesthesia was initiated. She was placed in the supine position with a left tilt and prepped and draped in usual sterile fashion. A Pfannenstiel incision was made with a scalpel and carried down to the level of the fascia which was sharply nicked. The fascial cut was extended bilaterally with Jamison sissors. The inferior and superior edges of the cut fascial edges were elevated with Nimesh clamps and the underlying rectus muscles were bluntly dissected free. The recti were divided digitally and retracted manually. Omentum was noted to be adhered to the peritoneum, and adhesions were taken down bluntly and with bovie cautery. The peritoneum was entered bluntly and retracted manually. Bladder blade was placed. Bladder flap was created with Metzenbaum scissors. A low transverse score was made with the scalpel and the uterus was entered in the midline with the scalpel. Clear fluid was seen. The hysterotomy was extended manually. The was noted to be vertex and was easily delivered by fundal pressure. Mouth and nares were bulb suctioned. Cord clamped and cut and grossly normal female infant was handed to waiting nurse. Cord blood was obtained. Placenta was extracted with fundal pressure, found to be intact with 3 vessel cord and was discarded. The uterus was externalized and the endometrium was curetted with a dry lap. The bladder blade was replaced and the uterus was closed with a running locking 0-monocryl suture. Following this hemostasis was noted. The abdomen was inspected and suctioned free of clots. The surrounding anatomy including ovaries and tubes were noted to be normal. The uterus was then internalized and the hysterotomy was again noted to be hemostatic. A small fascial defect was identified and repaired with 0-vicryl running locking suture. The rectus was then reapproximated with 2 simple interrupted 0-vicryl sutures. The fascia was then closed with a running non- locking 0-PDS suture. The subcutaneous tissue was irrigated and small bleeders were bovied with adequate hemostasis noted. The subcutaneous tissue was then closed with simple interrupted 3-0 plain gut suture. The skin was closed with 4- 0 monocryl running subcuticular suture and dermabond was placed topically. A pressure dressing was placed. All counts were correct. The patient tolerated the procedure well and was taken to the recovery room in stable condition. Estimated Blood Loss: 600 ml Complications: None Specimens: Cord blood sent to lab for blood type Findings: Grossly normal female infant (3035g) born at 0805 on [birth year] with apgars of 8 & 9. Grossly normal placenta with 3 vessel cord discarded. Drains: Lindquist to gravity draining clear urine <Gisele Sanon - Last Filed: 08/06/17 09:03> Attending Addendum - Attending Addendum Date/Time: 08/08/170 Present to attend this patient. I agree with Dr. Sanon's note above. <Dominic Rowe - Last Filed: 08/08/17 22:22>
[2017-08-06 09:28] LABS: HBSAB Concentration 12.55 mIU/mL; Hep B Surf AB Reactive (NonReactive)
[2017-08-06] MEDS ORDERED: NS / Oxytocin 40 units/1000ml 1,000 ML IV SCH (11:31)
[2017-08-06] MEDS ORDERED: Measles/Mumps/Rubella 10 MCG/0.5 ML VIAL SC ONE (11:31)
[2017-08-06] MEDS ORDERED: Adacel (T-DAP) 0.5 ML VIAL IM ONE (11:31)
[2017-08-06] MEDS ORDERED: Bisacodyl 10 MG SUPP PR PRN (11:31)
[2017-08-06] MEDS ORDERED: Lanolin Ointment 7 GM TUBE TOP PRN (11:31)
[2017-08-06] MEDS ORDERED: Ketorolac Tromethamine 30 MG/ML VIAL IVP SCH (12:00)
[2017-08-06] MEDS ORDERED: Ibuprofen 800 MG TAB PO SCH (14:00)
[2017-08-06] MEDS: Ketorolac Tromethamine 30 MG/ML VIAL IVP SCH ×2 (15:11→21:11)
[2017-08-06] MEDS: Lactated Ringer's 1,000 ML IV SCH (15:50)
[2017-08-06] MEDS ORDERED: HYDROcodone/Acetaminophen 5/325 mg Tablet PO PRN ×2 (20:45)
[2017-08-06] MEDS: Ferrous Sulfate 325 MG TAB PO SCH (21:17)
[2017-08-06] MEDS: Docusate Calcium (SURFAK) 240 MG CAP PO SCH (21:17)
[2017-08-07] MEDS: Ketorolac Tromethamine 30 MG/ML VIAL IVP SCH ×2 (03:20→10:30)
[2017-08-07] MEDS: Lactated Ringer's 1,000 ML IV SCH ×5 (03:51→23:45)
[2017-08-07 06:22] LABS: Hemoglobin 8.6 g/dL (12.0-16.0); Mean Corpuscular HGB CONC 30.9 g/dL (32.0-36.0); Mean Corpuscular Hemoglobin 21.1 pg (27.0-31.0); Mean Corpuscular Volume 68.4 fL (78.0-98.0); Mean Platelet Volume 6.7 fL (7.4-10.4); Platelet Count 170 thou/uL (130-400); RBC Distribution Width 18.8 % (11.5-14.5); Red Blood Cell (RBC) Count 4.09 mill/uL (4.20-5.40); White Blood Cell (WBC) Count 12.1 thou/uL (4.8-10.8)
--- NOTE | 2017-08-07 07:31 | PDOC.PP ---
Post Progress Note Post Day #: 1 PO intake tolerated: yes Flatus: yes Ambulation: yes Vital Signs (12 hours) Temp Pulse Resp BP BP Pulse Ox 08/07/17 06:30 20 08/07/17 03:53 98.2 F 56 L 22 H 116/72 08/07/17 02:00 18 08/07/17 00:30 98.7 F 56 L 20 106/60 08/06/17 22:00 18 08/06/17 20:00 98.3 F 60 20 114/66 98 Weight Weight 247 lb - Physical Examination General: NAD Cardiovascular: no m/r/g, RRR Respiratory: clear to auscultation bilaterally, non-labored breathing Abdominal: + bowel sounds, lochia, no distention, appropriately TTP Extremities: negative homans (B) Skin: CS incision dry & intact, no rash Neurological: no gross focal deficits Psychiatric: A&Ox3, normal affect Result Diagrams: 08/07/17 04:32 08/06/17 07:12 Additional Labs: Post Labs Blood Type O POSITIVE 08/06/17 07:12 Hep Bs Antigen Non-Reactive S/CO (NonReactive) 08/06/17 07:12 (1) delivery delivered Code(s): O82 - ENCOUNTER FOR DELIVERY WITHOUT INDICATION Status: Acute - Assessment/Plan routine post cs care
--- NOTE | 2017-08-07 07:56 | PDOC.PP ---
Post Progress Note Post Day #: 1 Subjective: Pt feeling well today. No pain at rest, but 9/10 with movement. Ambulating and no difficulties with urination. PO intake tolerated: yes Flatus: yes Ambulation: yes Vital Signs (12 hours) Temp Pulse Resp BP BP Pulse Ox 08/07/17 06:30 20 08/07/17 03:53 98.2 F 56 L 22 H 116/72 08/07/17 02:00 18 08/07/17 00:30 98.7 F 56 L 20 106/60 08/06/17 22:00 18 08/06/17 20:00 98.3 F 60 20 114/66 98 Weight Weight 112.037 kg - Physical Examination General: NAD Cardiovascular: no m/r/g, RRR Respiratory: clear to auscultation bilaterally, non-labored breathing Abdominal: lochia (minimal lochia rubra), no distention, appropriately TTP Fundus firm & at: below umbilicus Extremities: negative homans (B) Skin: CS incision dry & intact, no rash Perineum: clean/dry Neurological: no gross focal deficits Psychiatric: A&Ox3, normal affect Result Diagrams: 08/07/17 04:32 08/06/17 07:12 Additional Labs: Post Labs Blood Type O POSITIVE 08/06/17 07:12 Hep Bs Antigen Non-Reactive S/CO (NonReactive) 08/06/17 07:12 (1) delivery delivered Code(s): O82 - ENCOUNTER FOR DELIVERY WITHOUT INDICATION Status: Acute (2) Gestational hypertension Code(s): O13.9 - GESTATIONAL HTN W/O SIGNIFICANT PROTEINURIA, UNSP TRIMESTER Status: Resolved Qualifiers: Trimester: third trimester Qualified Code(s): O13.3 - Gestational [ -induced] hypertension without significant proteinuria, third trimester Comment: preE ruled out. resolved s/p delivery - Assessment/Plan 27yo PPD/POD#1 s/p RLTCS at 38.4wk for prior c/s in labor- continue routine /post course and improve pain control with ambulation.
[2017-08-07] MEDS: Docusate Calcium (SURFAK) 240 MG CAP PO SCH ×2 (10:02→23:45)
[2017-08-07] MEDS: Ferrous Sulfate 325 MG TAB PO SCH ×2 (10:03→23:45)
[2017-08-07] MEDS: Prenatal Vitamin 1 TAB PO SCH (10:03)
[2017-08-07] MEDS ORDERED: Hydrocodone-Acetamin 15 ML UDCUP PO PRN (10:10)
[2017-08-07] MEDS: Simethicone Chewable 80 MG TAB PO PRN ×2 (10:32→16:57)
[2017-08-07] MEDS: Hydrocodone-Acetamin 15 ML UDCUP PO PRN (10:54)
[2017-08-07] MEDS: Ibuprofen 100 MG/5 ML UDCUP PO SCH ×2 (14:01→21:23)
[2017-08-07] MEDS ORDERED: Ibuprofen 800 MG TAB PO SCH (22:00)
[2017-08-08] MEDS: Hydrocodone-Acetamin 15 ML UDCUP PO PRN (00:52)
[2017-08-08] MEDS: Simethicone Chewable 80 MG TAB PO PRN ×2 (00:53→01:00)
[2017-08-08] MEDS: Ibuprofen 100 MG/5 ML UDCUP PO SCH (06:21)
[2017-08-08 08:14] VITALS: BP 117/69; TEMP 98.6
[2017-08-08] MEDS: Docusate Calcium (SURFAK) 240 MG CAP PO SCH (08:33)
[2017-08-08] MEDS: Ferrous Sulfate 325 MG TAB PO SCH (08:33)
[2017-08-08] MEDS: Lactated Ringer's 1,000 ML IV SCH (08:33)
[2017-08-08] MEDS: Prenatal Vitamin 1 TAB PO SCH (08:33)
--- NOTE | 2017-08-08 09:09 | PDOC.EVN ---
Event Note - Event Note Event Note: OBGYN Faculty Discharge note Admission date 08/06/17 Discharge 08.08.17 Principal Procedure: Repeat Brief Review: 27 year old with history of 1 prior C section presented with early labor. History of preeclampsia with first . Patient desired repeat . performed without complication. Post-op HCT 28. Cleared for discharge post-op day 2. VSS Afeb.
--- NOTE | 2017-08-08 10:20 | PDOC.PP ---
Post Progress Note Post Day #: 2 Subjective: Feeling well with pain controlled on liquid motrin + liquid norco. Desiring to go home today. Undecided regarding contraception. PO intake tolerated: yes Flatus: yes Ambulation: yes Vital Signs (12 hours) Temp Pulse Resp BP 08/08/17 08:13 98.6 F 60 20 117/69 08/08/17 08:12 98.6 F 60 20 08/08/17 00:00 98.5 F 70 20 129/61 Weight Weight 112.037 kg - Physical Examination General: NAD Cardiovascular: no m/r/g, RRR Respiratory: clear to auscultation bilaterally, non-labored breathing Abdominal: lochia (minimal lochia rubra), no distention, appropriately TTP Fundus firm & at: umbilicus, appropriately tender Extremities: negative homans (B) Skin: CS incision dry & intact, no rash Neurological: no gross focal deficits Psychiatric: A&Ox3, normal affect Result Diagrams: 08/07/17 04:32 08/06/17 07:12 Additional Labs: Post Labs Blood Type O POSITIVE 08/06/17 07:12 Hep Bs Antigen Non-Reactive S/CO (NonReactive) 08/06/17 07:12 (1) delivery delivered Code(s): O82 - ENCOUNTER FOR DELIVERY WITHOUT INDICATION Status: Acute (2) Gestational hypertension Code(s): O13.9 - GESTATIONAL HTN W/O SIGNIFICANT PROTEINURIA, UNSP TRIMESTER Status: Resolved QualifierTitle: Trimester: third trimester Qualified Code(s): O13.3 - Gestational [-induced] hypertension without significant proteinuria, third trimester Comment: preE ruled out. resolved s/p delivery - Assessment/Plan 27yo PPD/POD#2 s/p RLTCS at 38.4wk for prior c/s after arrival in labor- Stable hospital course with routine /post care. Will plan to discharge home today with pain control and f/u at [facility] in 2 wks or prn sooner. <Gisele Sanon - Last Filed: 08/08/17 10:20> Vital Signs (12 hours) Temp Pulse Resp BP 08/08/17 08:13 98.6 F 60 20 117/69 08/08/17 08:12 98.6 F 60 20 Weight Weight 247 lb Result Diagrams: 08/07/17 04:32 08/06/17 07:12 Additional Labs: Post Labs Blood Type O POSITIVE 08/06/17 07:12 Hep Bs Antigen Non-Reactive S/CO (NonReactive) 08/06/17 07:12 - Assessment/Plan FACULTY: no evidence metritis. Stable for discharge. Faculty discharge note entered. <Randy Oviedo - Last Filed: 08/08/17 12:40>
== END 2017-08-08 12:05 | disposition home or self-care (01) | DRG 765 ==
LOC: L&D/OP 05:19 → L&D 07:02 → 3SW 11:20
PROVIDERS: ADMIT Obstetrics & Gynecology; ATTEND Obstetrics & Gynecology
PROC: 10D00Z1 Extraction of Products of Conception, Low, Open Approach (ICD-10-PCS; principal; 2017-08-06)
DX: O34.211 Maternal care for low transverse scar from previous cesarean delivery (principal); O13.1 Gestational [pregnancy-induced] hypertension without significant proteinuria, first trimester; Z37.0 Single live birth; O76 Abnormality in fetal heart rate and rhythm complicating labor and delivery; O99.02 Anemia complicating childbirth; D64.9 Anemia, unspecified; O99.334 Smoking (tobacco) complicating childbirth; F17.210 Nicotine dependence, cigarettes, uncomplicated; Z3A.00 Weeks of gestation of pregnancy not specified; Z3A.38 38 weeks gestation of pregnancy
CPT/HCPCS: 36415; 51702; 80053; 81003; 81015; 82570; 84156; 84550; 85027; 86706; 86780; 86850; 86900; 86901; 87086; 87340; 87389; 99285; A4216; J1885; J2001; J2274; J2550; J2590; J3010; J3490

== ENCOUNTER 2018-07-29 13:37 | Emergency (ER) | payer OTHER ==
[2018-07-29] MEDS ORDERED: Acetaminophen 650 MG/20.3 ML UDCUP ONE (14:47)
[2018-07-29 15:04] LABS: Bilirubin Negative (Negative); Blood, Urine Large (Negative); Glucose, Urine (Dipstick) Negative (Negative); Leukocyte Small (Negative); Nitrite Negative (Negative); Protein, Urine (Dipstick) 100 mg/dL (Neg-Trace); Specific Gravity, Urine 1.025 (1.005-1.030)
[2018-07-29 15:06] LABS: Clarity Hazy (Clear)
[2018-07-29 15:09] LABS: Bacteria/HPF 3+ HPF (None Seen)
[2018-07-29 15:15] LABS: Band 4 % (5-11); Hemoglobin 11.4 g/dL (12.0-16.0); Hypochromia SLIGHT = 6-15 cells (100X) (0-5/hpf); Lymphocytes 19 % (21-51); MDiff Complete? YES; Mean Corpuscular Hemoglobin 21.4 pg (27.0-31.0); Mean Corpuscular Volume 68.9 fL (78.0-98.0); Mean Platelet Volume 8.1 fL (7.4-10.4); Microcytosis SLIGHT = 6-15 cells (100X) (0-5/hpf); Monocytes 6 % (0-10); Neutrophil 70 % (42-75); Ovalocytes SLIGHT = 2-5 cells (100X) (0-1/hpf); Platelet Count 301 thou/uL (130-400); Platelet Morphology Comment Appears Adequate; RBC Distribution Width 15.4 % (11.5-14.5); Red Blood Cell (RBC) Count 5.35 mill/uL (4.20-5.40); White Blood Cell (WBC) Count 11.5 thou/uL (4.8-10.8)
--- NOTE | 2018-07-29 16:03 | ULT ---
Obstetric sonogram HISTORY: Pelvic pain and bleeding. Second trimester gestation. FINDINGS: Gestation in variable presentation. Grade 0 placenta is anterior. Heart motion at 150 bpm. Along the anterior subchorionic space, an irregular fluid collection measures up to 2.4 cm length by 1.3 cm depth. Amniotic fluid within normal limits. Measurements are as follows: Biparietal diameter 15 weeks 5 days. Head circumference 15 weeks 3 days. Abdominal circumference 16 weeks 1 day. Femur length 15 weeks 3 days. IMPRESSION: Single intrauterine gestation. Estimated gestational age 15 weeks 5 days. Small lower anterior subchorionic hemorrhage. Consider sonographic follow-up.
[2018-07-31 17:59] LABS: Chlamydia by PCR Not Detected (NotDetected); GC by PCR Not Detected (NotDetected)
== END 2018-07-29 17:09 | disposition home or self-care (01) ==
LOC: SCSER 13:37
DX: O20.9 Hemorrhage in early pregnancy, unspecified (principal); O23.592 Infection of other part of genital tract in pregnancy, second trimester; O23.42 Unspecified infection of urinary tract in pregnancy, second trimester; Z3A.15 15 weeks gestation of pregnancy; Z87.891 Personal history of nicotine dependence; Z79.82 Long term (current) use of aspirin; Z79.899 Other long term (current) drug therapy
CPT/HCPCS: 76815; 81003; 81015; 85025; 86900; 86901; 87086; 87480; 87491; 87510; 87591; 87660

== ENCOUNTER 2018-12-05 20:42 | Day surgery (SDC) | payer OTHER ==
[2018-12-05 21:19] VITALS: BP 114/66; TEMP 99.1; BMI 42.0
[2018-12-05] MEDS ORDERED: hydrALAZINE 20 MG/ML VIAL SLOW IVP PRN (21:42)
--- NOTE | 2018-12-05 21:55 | PDOC.FPROB ---
FMR OB H&P: HPI - History of Present Illness Chief Complaint: Contractions Indentification: 28yo History of Present Illness: 33.4 by LMP, 6.4wk gestational sac consistent w/ 15.5wk US. [place] at 1800. Immediately developed painful contractions occurring rapidly. Since then has began to space out and shorter duration. Upon initial presentation was sara q3-5 minutes. Currently has not felt a contraction for well over 20 minutes. Monitor does not show contraction in last 15 minutes. Similar episode a few weeks ago occurring without intercourse. Diagnosed with dehydration and sx resolved with IV fluids. Denies any vaginal pain, bleeding, discharge, or fluid loss. No changes in urination. Denies fever, chills, N/V/D. Primary Care Physician: Sal FMR OB H&P: Current - Care : 3 Para: 2001 Gestational age: 33.4 Due date: 01/19/2019 Dating Criteria: LMP/15.1wk sono Course/Complications: Hx of eclampsia - BP stable, daily asa Trichomonas - treated UTI - treated, ANKUSH neg GBS + - treated, ANKUSH pending BV x1 - treated Poor growth/borderline SGA: [place] 16.5% Chronic anemia - non compliance with iron rx 1T bleeding with subchorionic hemorrhage, resolved - OB Labs Blood type: O RH: positive Antibody Screen: negative HIV: negative RPR: negative HepBsAg: negative Rubella: immune Gonorrhea: negative Chlamydia: negative 1 hour gtt: 89 - First Trimester Ultrasound First trimester: 5w2d: tiny intrauterine sac measuring 6.6mm giving anestimated gest age of 5w2d. normal ovaries and tubes. no pole or yolk sac identified 15.5: single intrauterine gestation. 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, BV, UTI this - treated No abnormal pap hx - Surgical History Sx History: 2 sections - Social History Social History: Smokes tobacco, denies alcohol or drugs - Family History Family History: Non contributory FMR OB H&P: Medications - Current Home Medications: Medication Instructions Recorded Confirmed Type Vit No.130/Iron/Folic 1 tab PO DAILY 04/23/17 12/05/18 History [ Tablet] Nitrofurantoin Monohyd/M-Cryst 100 mg PO BID #10 cap 12/05/18 Rx [Macrobid] Allergies/Adverse Reactions: Allergies Allergy/AdvReac Type Severity Reaction Status Date / Time No Known Allergies Allergy Verified 06/21/17 19:57 FMR OB H&P: ROS - Review of Systems General: denies: fever/chills, weight/appetite/sleep changes Eyes: denies: vision changes, double vision ENT: denies: sinus pain/pressure Cardiovascular: denies: chest pain, palpitation, edema Respiratory: denies: cough, shortness of breath Gastrointestinal: reports: abdominal pain. denies: nausea, vomiting, diarrhea Genitourinary (Female): reports: contractions. denies: incontinence, dysuria, hematuria, polyuria Neurologic: denies: numbness, syncope, seizures, weakness, headache Integumentary: denies: itching, rash FMR OB H&P: Vital Signs - Maternal Vital signs: Vital Signs - First Documented Temp Pulse Resp BP 99.1 F 102 H 18 114/66 12/05/18 21:09 12/05/18 21:09 12/05/18 21:09 12/05/18 21:09 - Heart Tones Baseline: 145 Variability: moderate Acceleration: absent Deceleration: absent Category: category 1 [place] contractions every: Currently absent FMR OB H&P: Physical Exam - Physical Exam General: NAD HEENT: normocephalic and atraumatic, EOMI, grossly normal vision, grossly normal hearing Neck: FROM Heart: RRR, normal S1/S2 Deviation from normal: Rumbling systolic murmur General: CTAB, no respiratory distress, good air movement Abdomen: soft, gravid, non-tender, bowel sound present Musculoskeletal: normal gait and station, pulses present Neurological: cranial nerves II through XII intact Skin: no rash, capillary refill <2 seconds Lymphatic: no unusual bruising or bleeding, no purpura Psychiatric: intact recent and remote memory, good judgement and insight, normal mood and affect - Pelvic Exam Cervix: no masses, no lesions, no blood SVE: 0.5/20/-3 Romero score: 1 FMR OB H&P: A/P - Problem List (1) Third trimester at less than 36 weeks Current Visit: Yes Status: Acute Code(s): Z34.93 - ENCNTR FOR SUPRVSN OF NORMAL PREG, UNSP, THIRD TRIMESTER Assessment and Plan: Cervical/Vaginal stimulation during intercourse induced contractions. Rapidly resolving. Pt feeling better. DC home w/ routine follow up. (2) Urinary tract infection Current Visit: Yes Status: Acute Qualifiers: Urinary tract infection type: acute cystitis Assessment and Plan: Macrobid 100 PO BID x5 days Discussion: Date/Time: 12/05/182152 This H&P was discussed with Dr. Marina and Dr. Marx who agree with the above documentation and plan. Signature: Rene Foster D.O. - PGY1
[2018-12-05 22:42] LABS: Bacteria/HPF 1+ HPF (None Seen); Bilirubin Negative (Negative); Blood, Urine Negative (Negative); Clarity Clear (Clear); Glucose, Urine (Dipstick) Normal (Negative); Leukocyte 500 Leu/uL (Negative); Nitrite Negative (Negative); Protein, Urine (Dipstick) 10 mg/dL (Neg-Trace); Squamous Epithelial 0-3 HPF (0-3); WBC/HPF Greater than 50 HPF (0-3)
[2018-12-05 22:44] LABS: Urine Culture Reflex Yes Yes
[2018-12-07 00:36] LABS: Chlamydia by PCR Not Detected (NotDetected); GC by PCR Not Detected (NotDetected)
== END 2018-12-05 23:08 | disposition home or self-care (01) ==
LOC: L&D/OP 20:42
PROVIDERS: ATTEND Obstetrics & Gynecology
DX: O47.03 False labor before 37 completed weeks of gestation, third trimester (principal); O23.13 Infections of bladder in pregnancy, third trimester; O99.820 Streptococcus B carrier state complicating pregnancy; O99.013 Anemia complicating pregnancy, third trimester; D64.9 Anemia, unspecified; O99.333 Smoking (tobacco) complicating pregnancy, third trimester; F17.200 Nicotine dependence, unspecified, uncomplicated; Z3A.33 33 weeks gestation of pregnancy; Z91.14 Patient's other noncompliance with medication regimen
CPT/HCPCS: 81001; 87086; 87480; 87491; 87510; 87591; 87660; 99285

== ENCOUNTER 2018-12-24 19:19 | Day surgery (SDC) | payer OTHER ==
[2018-12-24 19:57] VITALS: BMI 42.5
--- NOTE | 2018-12-24 19:57 | PDOC.FPROB ---
FMR OB H&P: HPI - History of Present Illness Chief Complaint: chest pain Indentification: @ 36.2 wks by LMP c/w 15.5 wk sono History of Present Illness: 28yo @ 36.2 by LMP c/w 15.5wk sono presents for substernal chest pain and generalized weakness. States sxs have been ongoing for about last 24-36 hours. Substernal CP described as a pressure and burning sensation worse with standing, no associated with PO intake but has had decrease appetite and little PO intake for past 24 hours. Has not tried any OTC meds. Also as associated generalized weakness, GREENE behind L eye and blurred vision with no scotomas, no RUQ das, no SOB or increase LE edema. Also endorses cough and congestion for past 2 weeks, no OTC meds tried. Endorses good movement. No vaginal d/c, LOF, or vaginal bleeding. No dysuria, frequency, or urgency. Primary Care Physician: KODY Garner FMR OB H&P: Current - Care : 3 Para: 2 Gestational age: 36.2 Due date: 01/19/19 Dating Criteria: LMP/15.5 wk sono - OB Labs Blood type: O RH: positive Antibody Screen: negative HIV: negative RPR: negative HepBsAg: negative Rubella: immune Quad screen: unknown Urine drug screen: not done Gonorrhea: negative Chlamydia: negative Pap Smear: Done a year ago and reported normal 1 hour gtt: 89 GBS: positive (GBS bacturia) - First Trimester Ultrasound First trimester: Had U/S at 15.5 wks sono that showed subchorionic hemorrhage. Has had follow up which showed resolution - Anatomy Survey Anatomy survey: 20.1 wk anatomy sono. [place] 18.5%. no anomalies seen. Male fetus FMR OB H&P: History - Past Medical History PMH: Iron Def anemia. - OB History OB History: Previous ended in c/s 2/2 NRFHT and eclampsia. 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 No etOH or illicits. FMR OB H&P: Medications - Current Home Medications: Medication Instructions Recorded Confirmed Type Vit No.130/Iron/Folic 1 tab PO DAILY 04/23/17 12/24/18 History [ Tablet] Ondansetron [Zofran ODT] 4 mg PO NOW #30 tab 12/24/18 Rx Ranitidine HCl 75 mg PO BID #60 tablet 12/24/18 Rx Allergies/Adverse Reactions: Allergies Allergy/AdvReac Type Severity Reaction Status Date / Time No Known Allergies Allergy Verified 12/24/18 19:57 FMR OB H&P: ROS - Review of Systems General: reports: weight/appetite/sleep changes (decrease appetite), fatigue ( generalized). denies: fever/chills, night sweats Eyes: reports: vision changes (blurred). denies: double vision, scotomas, floaters ENT: reports: nasal congestion, sinus pain/pressure. denies: rhinorrhea, ear pain, sore throat Cardiovascular: reports: chest pain (burning/pressure midline). denies: edema, paroxysmal nocturnal dyspnea, orthopnea Respiratory: reports: congestion. denies: cough, shortness of breath Gastrointestinal: reports: indigestion. denies: abdominal pain, bloating, cramping, vomiting, diarrhea, constipation Genitourinary (Female): denies: incontinence, dysuria, polyuria, hesitancy, vaginal discharge, vaginal pain, vaginal bleeding, contractions, vaginal pressure Neurologic: denies: numbness, syncope, seizures Integumentary: denies: rash FMR OB H&P: Vital Signs - Maternal Vital signs: BP 127/84, T 98.3, tachy 110s - Heart Tones Baseline: 150 Variability: moderate Acceleration: present Deceleration: absent [place] contractions every: no contractions FMR OB H&P: Physical Exam - Physical Exam General: NAD, awake, alert and oriented HEENT: EOMI, MMM, conjunctiva clear, grossly normal vision, grossly normal hearing, normal nasal mucosa, other (injected posterior pharynx. dry MM.) Neck: supple, trachea midline, no LAD Chest: non-tender to palpation Heart: RRR, normal S1/S2, no murmurs/rubs/gallops, pulses present, no edema General: CTAB, no respiratory distress, good air movement, no rales/rhonchi, no wheezing Abdomen: soft, gravid, non-tender, bowel sound present Musculoskeletal: pulses present Neurological: no focal deficit Skin: no rash Psychiatric: intact recent and remote memory, good judgement and insight, normal mood and affect FMR OB H&P: A/P - Problem List (1) Third trimester Status: Acute Code(s): Z34.93 - ENCNTR FOR SUPRVSN OF NORMAL PREG, UNSP, THIRD TRIMESTER (2) GERD (gastroesophageal reflux disease) Status: Acute Code(s): K21.9 - GASTRO-ESOPHAGEAL REFLUX DISEASE WITHOUT ESOPHAGITIS Disposition: 28yo @ 36.2 by LMP c/w 15.5wk sono presents for substernal chest pain and generalized weakness. #Chest pain likely 2/2 GERD - sxs c/w GERD, burning substernal, associated decrease appetite - Given Zofran + Zantac - Given Tylenol 1g x1 - Will obtain CBC and CMP - Will obtain Flu and Strep swab as pt has cough/congestion and injected pharynx on exam - BP stable 120/80s with initial maternal tachycardia likely 2/2 dehydration #Mild Dehydration - Dry MM, last PO intake yesterday - Likely 2/2 GERD and decreased appetite - Will give Zofran + Zantac and 1 L LR bolus and monitor # Tachycardia - likely 2/2 maternal dehydration - Will give LR 1L bolus - Otherwise reassuring FHT, will cont to monitor #Third trimester - 36.2 by LMP c/w 15.5 wk sono - Dr. Garner at [facility] is PCP Dispo: Monitor on monitoring. Given Zofran, Tylenol, Zantac, and 1 L LR bolus. Flu and strep swabs. Monitor sxs. CMP and CBC. Above case and plan discussed with Dr. Rowe. Addendum - Attending - Attending Attestation Date/Time: 12/25/18 0015 I personally evaluated the patient and discussed the management with Dr. De La Garza. I agree with the History, Examination, Assessment and Plan documented above.
[2018-12-24] MEDS ORDERED: hydrALAZINE 20 MG/ML VIAL SLOW IVP PRN (20:18)
[2018-12-24] MEDS ORDERED: Lactated Ringer's 1,000 ML IV SCH (20:30)
[2018-12-24] MEDS ORDERED: Acetaminophen 500 MG TAB PO SCH (20:30)
[2018-12-24] MEDS ORDERED: Ondansetron ODT 4 MG TAB PO SCH (20:30)
[2018-12-24] MEDS ORDERED: Famotidine 20 MG TAB PO SCH (20:30)
[2018-12-24 21:13] LABS: #Eosinphils 0.1 thou/uL (0.0-0.7); #Lymphocytes 2.7 thou/uL (1.20-3.40); #Neutrophils 8.2 thou/uL (1.40-6.50); %Basophils 0.3 % (0.0-1.0); %Eosinophils 0.5 % (0.0-10.0); %Lymphocytes 22.5 % (21.0-51.0); %Neutrophils 68.7 % (42.0-75.0); Hemoglobin 10.3 g/dL (12.0-16.0); MDiff Complete? YES; Mean Corpuscular HGB CONC 31.2 g/dL (32.0-36.0); Mean Corpuscular Hemoglobin 20.8 pg (27.0-31.0); Mean Corpuscular Volume 66.6 fL (78.0-98.0); Mean Platelet Volume 11.9 fL (7.4-10.4); Microcytosis SLIGHT = 6-15 cells (100X) (0-5/hpf); Platelet Count 291 thou/uL (130-400); Platelet Morphology Comment Appears Adequate; RBC Distribution Width 17.8 % (11.5-14.5); Red Blood Cell (RBC) Count 4.96 mill/uL (4.20-5.40); White Blood Cell (WBC) Count 11.9 thou/uL (4.8-10.8)
[2018-12-24 21:18] LABS: ALT (SGPT) 8 U/L (8-55); AST (SGOT) 10 U/L (5-34); Albumin 3.2 g/dL (3.5-5.0); Alkaline Phosphatase 220 U/L (40-110); Anion Gap 13 mmol/L (10-20); BUN (Urea Nitrogen) 4 mg/dL (7.0-18.7); Bilirubin, Total 0.3 mg/dL (0.2-1.2); Calc. Creatinine Clearance 234 mL/min (70-130); Calcium 8.8 mg/dL (7.8-10.44); Carbon Dioxide 20 mmol/L (22-29); Chloride 107 mmol/L (98-107); Estimated GFR-MDRD Greater than 90; Globulin 3.6 g/dL (2.4-3.5); Potassium 3.8 mmol/L (3.5-5.1); Protein, Total 6.8 g/dL (6.0-8.3); Sodium 136 mmol/L (136-145)
[2018-12-24 21:28] LABS: Glucose 52 mg/dL (70-105)
[2018-12-24] MEDS ORDERED: Dextrose 5%-Lactated Ringers 1,000 ML IV SCH (21:45)
== END 2018-12-24 23:17 | disposition home or self-care (01) ==
LOC: L&D/OP 19:19
PROVIDERS: ATTEND Obstetrics & Gynecology
DX: O99.89 Other specified diseases and conditions complicating pregnancy, childbirth and the puerperium (principal); R07.2 Precordial pain; O36.8330 Maternal care for abnormalities of the fetal heart rate or rhythm, third trimester, not applicable or unspecified; O99.283 Endocrine, nutritional and metabolic diseases complicating pregnancy, third trimester; E86.0 Dehydration; O99.613 Diseases of the digestive system complicating pregnancy, third trimester; K21.9 Gastro-esophageal reflux disease without esophagitis; O99.333 Smoking (tobacco) complicating pregnancy, third trimester; F17.210 Nicotine dependence, cigarettes, uncomplicated; Z3A.36 36 weeks gestation of pregnancy; Z79.899 Other long term (current) drug therapy
CPT/HCPCS: 36415; 36416; 80053; 85025; 87081; 87430; 87804; 99283

== ENCOUNTER 2019-01-03 19:04 | Day surgery (SDC) | payer MEDICAID, OTHER ==
[2019-01-03 19:44] VITALS: BMI 25.5
[2019-01-03] MEDS ORDERED: hydrALAZINE 20 MG/ML VIAL SLOW IVP PRN (20:22)
[2019-01-03] MEDS ORDERED: Butorphanol Tartrate 1 MG/ML VIAL SLOW IVP PRN (20:22)
--- NOTE | 2019-01-03 20:33 | PDOC.FPROB ---
FMR OB H&P: HPI - History of Present Illness Chief Complaint: irregular contractions x 1 day and increased discharge Indentification: 28 yo G3 P 2002 @ 37.5wks History of Present Illness: Ms. Butcher is a 28yo here for excruciating paulina-anal pain. She has a history of hemorrhoids and was trying Preparation H for symptom management, but today the pain became intolerable and she arrived via EMS to [facility]. 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 FMR OB H&P: Medications - Current Home Medications: Medication Instructions Recorded Confirmed Type Vit No.130/Iron/Folic 1 tab PO DAILY 04/23/17 12/24/18 History [ Tablet] Aspirin [Children's Aspirin] 81 mg PO DAILY 01/03/19 01/03/19 History Allergies/Adverse Reactions: Allergies Allergy/AdvReac Type Severity Reaction Status Date / Time No Known Allergies Allergy Verified 01/03/19 19:38 FMR OB H&P: ROS - Review of Systems General: denies: fever/chills, weight/appetite/sleep changes, fatigue ENT: denies: nasal congestion, rhinorrhea Cardiovascular: denies: chest pain, palpitation Respiratory: denies: cough, congestion Gastrointestinal: reports: other (perianal pain). denies: abdominal pain Genitourinary (Female): denies: incontinence, dysuria Musculoskeletal: denies: pain, stiffness Neurologic: denies: numbness, weakness Integumentary: denies: itching, rash FMR OB H&P: Vital Signs - Maternal Vital signs: BP 107/52 HR 83 Temp 98.4F FMR OB H&P: Physical Exam - Physical Exam General: NAD, awake, alert and oriented HEENT: normocephalic and atraumatic, MMM, grossly normal vision, grossly normal hearing Neck: supple Heart: RRR, normal S1/S2, no murmurs/rubs/gallops General: CTAB, no respiratory distress, good air movement Abdomen: soft, gravid, non-tender Musculoskeletal: normal gait and station, pulses present Neurological: cranial nerves II through XII intact Skin: no rash, good tugor Deviation from normal: Large, thrombosed external hemorrhoid FMR OB H&P: A/P Disposition: Stable Discussion: Date/Time: 01/03/192032 1. Thrombosed hemorrhoid - plan to I&D the hemorrhoid - pain control with 1x dose of Stadol prior to procedure and local anesthetic. This H&P was discussed with Dr. Gomes who agree with the above documentation and plan. Addendum - Attending - Attending Attestation Date/Time: 01/04/19 9253 I personally evaluated the patient and discussed the management with Dr. Gauthier. I agree with the History, Examination, Assessment and Plan documented above with any addition or exceptions noted below. I was present for the incision of her thrombosed hemorrhoid. patient experienced immediate relief following drainage. Advised BID sitz baths for the next week.
[2019-01-03] MEDS ORDERED: Lidocaine 1% w/Epinephrine 1:100K 20 ML VIAL IJ SCH (20:45)
--- NOTE | 2019-01-04 04:20 | PDOC.OP ---
Operative Note - Operative Note Operative Note: PRE-OP DIAGNOSIS: Thrombosed hemorrhoid POST-OP DIAGNOSIS: Same PROCEDURE: incision and drainage of hemorrhoid Performing Physician: Dr. Gauthier Supervising Physician: Dr. Gomes PROCEDURE: A timeout protocol was performed prior to initiating the procedure. The area was prepared with hibiclens. The site was anesthetized with 1% lidocaine with epinephrine. An eliptical incision along the local skin lines was made and the blood clot expressed. Bleeding was minimal. Followup: The patient tolerated the procedure well without complications. Standard post-procedure care is explained and return precautions are given. ATTENDING ADDENDUM: I was preset for the entire procedure.
--- NOTE | 2019-01-04 04:21 | PDOC.EVN ---
Event Note - Event Note Event Note: She tolerated the procedure well. Recommend SITZ baths and keeping the area clean. Recommend f/u with [facility] next week. Patient was discharged home.
== END 2019-01-03 21:55 | disposition home or self-care (01) ==
LOC: L&D/OP 19:04
PROVIDERS: ATTEND Family Medicine
PROC: 069Y3ZZ Drainage of Lower Vein, Percutaneous Approach (ICD-10-PCS; principal; 2019-01-03)
DX: O22.43 Hemorrhoids in pregnancy, third trimester (principal); O99.013 Anemia complicating pregnancy, third trimester; D57.3 Sickle-cell trait; Z3A.37 37 weeks gestation of pregnancy; Z79.82 Long term (current) use of aspirin
CPT/HCPCS: 46320; J0595

== ENCOUNTER 2019-01-05 09:49 | Day surgery (SDC) | payer OTHER ==
[2019-01-05 10:27] VITALS: BMI 42.7
[2019-01-05] MEDS ORDERED: Lidocaine 2% 10 ML INJ ONE (10:46)
[2019-01-05] MEDS ORDERED: Lidocaine 1% (PF) 30 ML VIAL ONE (10:46)
[2019-01-05] MEDS ORDERED: Lidocaine PF 1% 10 MG/ML ML IJ ONE (11:11)
[2019-01-05] MEDS ORDERED: Lidocaine 2% Jelly 5 ML TUBE ONE (11:11)
[2019-01-05] MEDS ORDERED: HYDROcodone/Acetaminophen 10/325 mg Tablet PO PRN (11:32)
[2019-01-05] MEDS ORDERED: hydrALAZINE 20 MG/ML VIAL SLOW IVP PRN (11:32)
--- NOTE | 2019-01-05 12:31 | PDOC.OP ---
Operative Note - Operative Note Operative Note: Thrombosed Hemorroidectomy Operative Note: We positioned patient adequately. The assistant scientist spread the patient's buttocks. Topical chloraprep was applied followed by Lidocaine gel, then 1% Lidocaine without epi (10ml). We then made an elliptical incision over the first thrombosed hemorrhoid, extending from the anal skin to the distal edge of the thrombosed hemorrhoid using a 15 blade scalpel. The clot was then extracted. The second thrombosed hemorrhoid was extracted using the same technique. We examined the wound for residual clots and evacuated some small remaining clots. A pressure bandage was applied. Return precautions provided. EBL 4ml. Pt tolerated the procedure well. ATTENDING ADDENDUM: I was present for the entire procedure and agree with documentation above.
[2019-01-05] MEDS ORDERED: Butorphanol Tartrate 1 MG/ML VIAL ONE (13:28)
--- NOTE | 2019-01-05 13:35 | PDOC.FPROB ---
FMR OB H&P: HPI - History of Present Illness Chief Complaint: Hemorrhoidal pain History of Present Illness: Indentification: 28 yo G3 P 2001 @ 38.0wks History of Present Illness: Ms. Butcher is a 28yo here for excruciating paulina-anal pain. Pt had recent I&D of hemorrhoids on 01/03. Pt returns today stating that the hemorrhoids are bigger than last time and the pain is back again. Pt reports not having BM since she came in on Sunday. Reports good FM, denies ctx, LOF, vaginal bleeding, itching or discharge. 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 FMR OB H&P: Medications - Current Home Medications: Medication Instructions Recorded Confirmed Type Vit No.130/Iron/Folic 1 tab PO DAILY 04/23/17 01/05/19 History [ Tablet] Aspirin [Children's Aspirin] 81 mg PO DAILY 01/03/19 01/05/19 History Docusate [Colace] 100 mg PO BID #60 cap 01/05/19 Rx Polyethylene Glycol 3350 [Miralax] 17 gm PO DAILY #30 pk 01/05/19 Rx Sennosides [Senna] 17.2 mg PO DAILY #60 tablet 01/05/19 Rx Allergies/Adverse Reactions: Allergies Allergy/AdvReac Type Severity Reaction Status Date / Time No Known Allergies Allergy Verified 01/05/19 10:23 FMR OB H&P: ROS - Review of Systems General: denies: fever/chills, weight/appetite/sleep changes, night sweats, fatigue Eyes: denies: eye pain, vision changes ENT: denies: nasal congestion, rhinorrhea Respiratory: denies: cough, congestion Gastrointestinal: reports: constipation. denies: abdominal pain, indigestion, bloating, nausea, vomiting, diarrhea, bright red blood Genitourinary (Female): denies: dysuria, vaginal discharge, vaginal pain, vaginal bleeding, vaginal mass/sore, contractions, vaginal pressure Neurologic: denies: numbness, weakness Integumentary: denies: itching, rash Psychological: denies: depression FMR OB H&P: Vital Signs - Heart Tones Variability: moderate Acceleration: present Category: category 1 [place] contractions every: None seen FMR OB H&P: Physical Exam - Physical Exam General: NAD, awake, alert and oriented HEENT: normocephalic and atraumatic, grossly normal vision, grossly normal hearing Heart: RRR, normal S1/S2, no murmurs/rubs/gallops, pulses present, no edema General: CTAB, no respiratory distress, good air movement, no rales/rhonchi, no wheezing Abdomen: soft, gravid, non-tender, bowel sound present, no masses, other ( thrombosed external hemorrhoid noted. Very painful to light palpation) Musculoskeletal: normal gait and station, pulses present Neurological: sensation to pain,touch and proprioception grossly normal Skin: no rash Psychiatric: intact recent and remote memory, other (Pt in some distress from pain) FMR OB H&P: A/P - Problem List (1) Hemorrhoid thrombosis Current Visit: Yes Status: Acute Code(s): K64.5 - PERIANAL VENOUS THROMBOSIS Disposition: Thrombosed hemorrhoid noted. Measuring 5x2cm. Will plan to excise with elliptical excision. Topical lidocaine applied for pain. Will give 10/325 norco for pain as well. Pt in some distress now. -20 min strip shows good accels. Cat 1 strip. No ctx noted Constipation -Will ensure pt has good bowel regimen upon discharge. Likely aggrevating hemorrhoid. Discussion: Date/Time: 01/05/19 4665 This H&P was discussed with [] and [] who agree with the above documentation and plan. Addendum - Attending - Attending Attestation Date/Time: 01/05/19 1224 I personally evaluated the patient and discussed the management with Dr. Jones I agree with the History, Examination, Assessment and Plan documented above with any addition or exceptions noted below. 2 external hemorrhoids noted on exam. one had been previously excised but had rethrombosed. incision per Dr. Enamorado's note. Patient was initially D/C but began to experience severe pain while in the wheel chair on the way to her car. Returned to unit and received Stadol 2 mg IM. I reexamined the patient and noted a normal amount of post incision bleeding the patient stated the dry gauze hurt her rectal area. 2 small vaseline imed gauze pads were placed on the site and covered with a 4x4 gauze pad. I discussed care plan with the patient including d/c home with dermaplast spray vs admission for pain control and evaluation by general surgery. Patient stated that she felt like she could manage her symptoms at home and did not want to be admitted. Patient d /c with dermaplast spray. Rx sent to pharmacy for scheduled colace, miralax, and senna to help soften her stools and prevent hemorrhoid reoccurrence.
[2019-01-05] MEDS ORDERED: Butorphanol Tartrate 1 MG/ML VIAL SLOW IVP SCH (13:45)
[2019-01-05] MEDS ORDERED: Silver Nitrate Application 1 EACH TOP SCH (13:45)
[2019-01-05] MEDS ORDERED: Butorphanol Tartrate 1 MG/ML VIAL IM SCH (14:17)
[2019-01-05] MEDS ORDERED: Benzocaine-Menthol 82.5 ML CAN TOP SCH (14:30)
== END 2019-01-05 14:41 | disposition home health service (06) ==
LOC: L&D/OP 09:49
PROVIDERS: ATTEND Obstetrics & Gynecology
PROC: 06BY3ZC Excision of Hemorrhoidal Plexus, Percutaneous Approach (ICD-10-PCS; principal; 2019-01-05)
DX: O22.43 Hemorrhoids in pregnancy, third trimester (principal); Z3A.38 38 weeks gestation of pregnancy; Z79.82 Long term (current) use of aspirin; Z79.899 Other long term (current) drug therapy
CPT/HCPCS: 46320; J0595; J2001

== ENCOUNTER 2019-01-15 12:00 | Inpatient (IN) | payer MEDICAID, OTHER ==
[~2019-01-15 12:00] MED LIST: PHENYLEPHRINE-NS 100 MCG/ML 10 ML SYRINGE ONE
[2019-01-15 13:22] VITALS: BMI 43.6
[2019-01-15] MEDS ORDERED: Lactated Ringer's 1,000 ML IV SCH (13:34)
[2019-01-15] MEDS ORDERED: hydrALAZINE 20 MG/ML VIAL SLOW IVP PRN ×2 (13:34→15:41)
[2019-01-15] MEDS ORDERED: Ondansetron PF 4 MG/2 ML Vial IVP PRN ×3 (13:34→15:41)
[2019-01-15] MEDS ORDERED: Promethazine HCl 25 MG/ML VIAL IM PRN ×3 (13:34→15:41)
[2019-01-15] MEDS ORDERED: CEFAZOLIN 2 GM in Premix Bag 1 BAG IVPB SCH (13:45)
[2019-01-15] MEDS ORDERED: diphenhydrAMINE 50 MG/ML VIAL IVP PRN (14:23)
[2019-01-15] MEDS ORDERED: Naloxone HCl 0.4 mg/ml Vial IVP PRN ×2 (14:23)
[2019-01-15] MEDS ORDERED: Ketorolac Tromethamine 30 MG/ML VIAL IVP PRN (14:23)
[2019-01-15] MEDS ORDERED: HYDROmorphone 2 MG/ML VIAL SLOW IVP PRN (14:23)
[2019-01-15] MEDS ORDERED: Ondansetron HCl/PF 4 MG/2 ML Vial IVP PRN (14:23)
[2019-01-15] MEDS ORDERED: L&D-Morphine 4 MG/ML VIAL SLOW IVP PRN (14:23)
[2019-01-15] MEDS ORDERED: Naloxone HCl 0.4 mg/ml Vial IV PRN (14:23)
[2019-01-15] MEDS ORDERED: Meperidine HCl/PF 25 MG/ML VIAL SLOW IVP PRN (14:23)
[2019-01-15] MEDS ORDERED: Promethazine HCl 25 MG SUPP PR PRN (14:23)
[2019-01-15] MEDS ORDERED: Ketorolac Tromethamine 30 MG/ML VIAL IVP SCH (14:30)
[2019-01-15] MEDS ORDERED: Communication Order-Pharmacy FS SCH (14:30)
[2019-01-15] MEDS ORDERED: diphenhydrAMINE 50 MG/ML VIAL ONE (14:34)
[2019-01-15] MEDS ORDERED: NS / Oxytocin 40 units/1000ml 1,000 ML ONE (14:36)
[2019-01-15 15:04] LABS: Syphilis Antibody Nonreactive (Nonreactive); Syphilis Antibody Index 0.13 S/CO (<1.00 Non-Reactive)
[2019-01-15 15:05] LABS: HBSAg Index 0.18 S/CO (0-0.99); Hep B Surf Ag Non-Reactive S/CO (NonReactive)
[2019-01-15] MEDS ORDERED: Adacel (T-DAP) 0.5 ML SYRINGE IM ONE (15:41)
[2019-01-15] MEDS ORDERED: HYDROcodone/Acetaminophen 5/325 mg Tablet PO PRN ×2 (15:41)
[2019-01-15 15:46] LABS: Platelet Count 299 thou/uL (130-400)
--- NOTE | 2019-01-15 19:15 | PDOC.BPN ---
- Brief Progress Note Patient doing well post-op. Reports normal pp lochia similar to menstrual period. VSS. Reports pain is well controlled, just notes some pain when she coughs. /bonding with baby well. Routine pp care. Will continue to monitor bleeding, continue adequate pain control. H/H in am.
[2019-01-15] MEDS ORDERED: Ferrous Sulfate 325 MG TAB PO SCH (21:00)
[2019-01-15] MEDS: Docusate Calcium (SURFAK) 240 MG CAP PO SCH (21:33)
[2019-01-16] MEDS ORDERED: Lanolin Ointment 7 GM TUBE TOP PRN (01:10)
[2019-01-16] MEDS ORDERED: HYDROcodone/Acetaminophen 5/325 mg Tablet PO PRN (02:30)
[2019-01-16] MEDS: Simethicone Chewable 80 MG TAB PO PRN (04:42)
[2019-01-16 04:50] LABS: Hemoglobin 9.4 g/dL (12.0-16.0); Mean Corpuscular HGB CONC 31.1 g/dL (32.0-36.0); Mean Corpuscular Hemoglobin 20.6 pg (27.0-31.0); Mean Corpuscular Volume 66.2 fL (78.0-98.0); Mean Platelet Volume 6.5 fL (7.4-10.4); Platelet Count 271 thou/uL (130-400); RBC Distribution Width 18.5 % (11.5-14.5); Red Blood Cell (RBC) Count 4.54 mill/uL (4.20-5.40); White Blood Cell (WBC) Count 12.4 thou/uL (4.8-10.8)
[2019-01-16] MEDS ORDERED: Prenatal Vitamin 1 TAB PO SCH (09:00)
[2019-01-16] MEDS: Docusate Calcium (SURFAK) 240 MG CAP PO SCH ×2 (10:38→22:38)
[2019-01-16] MEDS: HYDROcodone/Acetaminophen 5/325 mg Tablet PO PRN ×2 (11:34→13:13)
[2019-01-16] MEDS: Polyethylene Glycol 3350 17 GM Packet PO SCH (11:34)
--- NOTE | 2019-01-16 12:58 | PDOC.OBPPN ---
FMR OB PN: Subj - Interval History Hospital Day: 2 Day: 2 Chief Complaint: csection follow up Interval History: Patient doing well, ambulating, passing gas, tolerating PO. Pain well cont FMR OB PN: Obj - Maternal Vital signs: Vitals reviewed - Urine output I&O: 01/15/19 01/16/19 01/17/19 06:59 06:59 06:59 Intake Total 240 240 Output Total 2223 -1982 240 - Lochia Lochia: Normal FMR OB PN: Exam - Physical Exam General: NAD, awake, alert and oriented Heart: RRR General: CTAB, good air movement Abdomen: soft, non-tender, other (ISHMAEL removed by patient) FMR OB PN: Data - Labs Lab results: Laboratory Results - last 24 hr 01/15/19 01/15/19 01/15/19 11:00 12:00 12:00 WBC RBC Hgb 10.0 L Hct 32.3 L MCV MCH MCHC RDW Plt Count 299 MPV Syphilis IgG/IgM Ab Nonreactive Hep Bs Antigen Blood Type O POSITIVE Antibody Screen NEGATIVE 01/15/19 01/16/19 12:00 04:25 WBC 12.4 H RBC 4.54 Hgb 9.4 L Hct 30.1 L MCV 66.2 L MCH 20.6 L MCHC 31.1 L RDW 18.5 H Plt Count 271 MPV 6.5 L Syphilis IgG/IgM Ab Hep Bs Antigen Non-Reactive Blood Type Antibody Screen FMR OB PN: A/P - Problem List (1) delivery delivered Current Visit: No Status: Acute Code(s): O82 - ENCOUNTER FOR DELIVERY WITHOUT INDICATION Discussion: Date/Time: 01/16/19 1257 Patient doing well. Ambulate TID Change rx to liquid/chewable form if possible Replace ISHMAEL Hopeful d/c tomorrow Wound check @ ppd 5.
[2019-01-16] MEDS ORDERED: FLU VACC QS2019-20(6MOS UP)/PF 60 MCG/0.5 ML SYRINGE IM ONE (13:30)
--- NOTE | 2019-01-16 14:00 | PDOC.PP ---
Post Progress Note Post Day #: 1 Subjective: Patient doing well. No significant overnight events. Nursing does report that patient is not wanting to take pills. She prefers liquid. She took Hudson last night for pain but reportedly "chewed" the pill. Patient denies any significant abdominal pain, N/V, chest pain, shortness of breath. She states that this C/S PP period has been much better than in the past. PO intake tolerated: yes Flatus: yes Ambulation: yes Vital Signs (12 hours) Temp Pulse Resp BP Pulse Ox 01/16/19 11:49 98.7 F 84 20 116/61 01/16/19 08:24 98.2 F 79 20 105/54 L 99 01/16/19 04:00 98.1 F 74 16 103/52 L 97 Weight Weight 115.212 kg - Physical Examination General: NAD Cardiovascular: RRR Deviation from normal: 2/6 systolic murmur Respiratory: clear to auscultation bilaterally, non-labored breathing Abdominal: + bowel sounds, lochia (minimal), no distention, appropriately TTP Fundus firm & at: at umbilicus Extremities: negative homans (B) Deviation from normal: Wound vac in place, dry, minimal amount of sanginous fluid on wound vac Neurological: no gross focal deficits Psychiatric: A&Ox3, normal affect Result Diagrams: 01/16/19 04:25 Additional Labs: Post Labs Blood Type O POSITIVE 01/15/19 11:00 Hep Bs Antigen Non-Reactive S/CO (NonReactive) 01/15/19 12:00 (1) delivery delivered Code(s): O82 - ENCOUNTER FOR DELIVERY WITHOUT INDICATION Status: Acute - Assessment/Plan Routine PP care - Wound vac in place this AM during my evaluation; minimal amount of blood on vac - Lochia minimal - Rh +, rubella immune - Encourage ambulation - Will place order for corporate travel consultant due to concerns with RLTCS - POD #1 - Doing well, meeting milestones - Hg 10.0 --> 9.4 - On iron, will change to chewable/liquid if available Dispo: Stable. Plan for possible d/c home tomorrow. Addendum - Attending - Attending Attestation Date/Time: 01/16/19 3841 see my note.
[2019-01-16] MEDS ORDERED: Ibuprofen 100 MG/5 ML UDCUP PO SCH (14:45)
[2019-01-16] MEDS ORDERED: Ibuprofen 800 MG TAB PO SCH (22:00)
[2019-01-16] MEDS: Ibuprofen 100 MG/5 ML UDCUP PO SCH (22:38)
[2019-01-17] MEDS: Ibuprofen 100 MG/5 ML UDCUP PO SCH ×4 (00:33→21:42)
[2019-01-17] MEDS: HYDROcodone/Acetaminophen 5/325 mg Tablet PO PRN (04:45)
[2019-01-17] MEDS: Simethicone Chewable 80 MG TAB PO PRN ×2 (04:48→08:45)
[2019-01-17] MEDS: Polyethylene Glycol 3350 17 GM Packet PO SCH (08:44)
[2019-01-17] MEDS: Prenatal Vitamin 1 TAB PO SCH (08:46)
[2019-01-17] MEDS: Docusate Calcium (SURFAK) 240 MG CAP PO SCH ×2 (08:46→21:32)
--- NOTE | 2019-01-17 08:55 | PDOC.PP ---
Post Progress Note Post Day #: 2 Subjective: Patient overall doing well. Endorses significant gas pain. She feels this will get better if she walks around more today. Lochia minimal. PO intake tolerated: yes Flatus: no Ambulation: yes Vital Signs (12 hours) Temp Pulse Resp BP Pulse Ox 01/17/19 08:32 98.5 F 71 20 126/68 98 01/17/19 04:43 98.4 F 84 16 112/55 L 98 01/17/19 00:25 97.9 F 88 118/67 Weight Weight 115.212 kg - Physical Examination General: NAD Cardiovascular: RRR Respiratory: clear to auscultation bilaterally, non-labored breathing Abdominal: lochia (minimal), no distention, appropriately TTP Fundus firm & at: below umbilicus Extremities: negative homans (B) Skin: no rash Deviation from normal: Wound vac in place, clean, dry Neurological: no gross focal deficits Psychiatric: A&Ox3, normal affect Result Diagrams: 01/16/19 04:25 Additional Labs: Post Labs Blood Type O POSITIVE 01/15/19 11:00 Hep Bs Antigen Non-Reactive S/CO (NonReactive) 01/15/19 12:00 (1) delivery delivered Code(s): O82 - ENCOUNTER FOR DELIVERY WITHOUT INDICATION Status: Acute - Assessment/Plan Routine PP care - Wound vac in place this AM; clean and dry - Lochia minimal - Rh +, rubella immune - Encourage ambulation - Scheduled liquid ibuprofen as patient not tolerating pills RLTCS - POD #2 - Doing well, meeting milestones - Hg 10.0 --> 9.4 - On liquid iron, as patient not tolerating pills Dispo: Stable. Will monitor pain today. Possible d/c later today vs. tomorrow in AM. Addendum - Attending - Attending Attestation Date/Time: 01/17/19 1252 I personally evaluated the patient and discussed the management with Dr. Garner. I agree with the History, Examination, Assessment and Plan documented above with any addition or exceptions noted below.
--- NOTE | 2019-01-17 11:36 | OP ---
DATE OF PROCEDURE: 01/15/2019 RESIDENT SURGEON: Geneva Garner DO COPYING MACHINE MECHANIC SURGEON: Gisele Velez MD ATTENDING SURGEON: Sigifredo Christensen MD PROCEDURE PERFORMED: Repeat low transverse section. PREOPERATIVE DIAGNOSES: 1. Term intrauterine . 2. Previous x2. 3. History of preeclampsia in previous . 4. Current smoker. POSTOPERATIVE DIAGNOSES: 1. Term intrauterine , delivered. 2. Previous x2. 3. History of preeclampsia in previous . 4. Current smoker. ANESTHESIA: Spinal. INDICATIONS: This is a G3, P2-0-0-2 at 39 and 3 weeks, RIA of 01/19/2019, who presented for repeat scheduled . PROCEDURE IN DETAIL: After risks, benefits, and alternatives were explained to the patient, she gave informed consent. Preoperative antibiotics included cefazolin 2 g IV. The patient was taken back to the operating room and spinal anesthesia was initiated. She was placed in supine position with a left tilt and prepped and draped in the usual sterile fashion. A Pfannenstiel incision was made with a scalpel and carried down to the level of the fascia, which was sharply nicked. Fascial cut was extended bilaterally with Jamison scissors. Inferior and superior edges of the cut fascial edges were elevated with Nimesh clamps. Underlying rectus muscles were sharply and bluntly dissected free. Of note, during this process, a 4 cm buttonhole was formed which was later repaired. The recti were divided digitally and retracted manually. The peritoneum was entered bluntly and retracted manually. Bladder blade was placed. There was a small adhesion noted on the left side of the uterus, which was taken down with Metzenbaum scissors. An Collins O was then placed and a low transverse score was made with a scalpel and the uterus was entered in the midline with the scalpel. Clear fluid was seen after rupture with Allis. Hysterotomy was extended manually. Infant was noted to be vertex and was easily delivered by fundal pressure. Mouth and nares were bulb suctioned. Cord was clamped and cut and grossly normal male was handed to awaiting nurse. Cord blood was obtained. Placenta was manually extracted and found to be intact with three-vessel cord and discarded. Hysterotomy was repaired using a running locking #1 Monocryl suture followed by [id number] suture in the horizontal fashion along left side of uterus. As there was still noted to be some oozing from the hysterotomy site, FloSeal was used. After a period of 3 minutes, the hysterotomy was again examined and noted to be hemostatic.The Collins O was removed and the hysterotomy was again noted to be hemostatic. The abdominal muscles were examined and bleeders were cauterized. The 4 cm buttonhole on the right superior aspect of the fascia was closed with an 0 PDS suture in a running nonlocking fashion. The remainder of the fascia was then closed using 0 PDS suture in a running nonlocking fashion with two separate sutures on either side of the fascia. The abdomen was irrigated with saline. Subcutaneous tissue was irrigated and bleeders were cauterized. Subcutaneous tissue was brought together using 2- 0 plain gut. The skin was then approximated with hugh and a wound VAC was placed. All counts were correct. The patient tolerated the procedure well, was taken to recovery room in stable condition. ESTIMATED BLOOD LOSS: 600 mL. COMPLICATIONS: None. SPECIMENS: Cord blood sent to lab for blood type. FINDINGS: Grossly normal male . Grossly normal placenta with 3-vessel cord discarded. DRAINS: Lindquist to gravity, draining clear urine. Attending addendum: I was present and scrubbed for all critical portions of the procedure. Job ID: [id number] [facility]
--- NOTE | 2019-01-18 02:16 | PDOC.PP ---
Post Progress Note Post Day #: 3 Subjective: Patient doing well. No concerns at this time. She states her gas pains have resolved and she is feeling much better. Lochia minimal. Patient ambulating. PO intake tolerated: yes Flatus: yes Ambulation: yes Vital Signs (12 hours) Temp Pulse Resp BP Pulse Ox 01/17/19 20:53 98.6 F 84 18 115/58 L 95 01/17/19 16:15 98.9 F 89 20 122/59 L 96 Weight Weight 115.212 kg - Physical Examination General: NAD Cardiovascular: RRR Respiratory: non-labored breathing Abdominal: + bowel sounds, lochia (minimal), no distention, appropriately TTP Fundus firm & at: below umbilicus Extremities: negative homans (B) Skin: no rash Deviation from normal: Wound vac in place, clean, and dry Neurological: no gross focal deficits Psychiatric: A&Ox3, normal affect Result Diagrams: 01/16/19 04:25 Additional Labs: Post Labs Blood Type O POSITIVE 01/15/19 11:00 Hep Bs Antigen Non-Reactive S/CO (NonReactive) 01/15/19 12:00 (1) delivery delivered Code(s): O82 - ENCOUNTER FOR DELIVERY WITHOUT INDICATION Status: Acute - Assessment/Plan Routine PP care - Wound vac in place; clean and dry - Lochia minimal - Rh +, rubella immune - Encourage ambulation - Scheduled ibuprofen RLTCS - POD #3 - Doing well, meeting milestones - Hg 10.0 --> 9.4 - On liquid iron, as patient not tolerating pills Anemia of - Hg 10.0 --> 9.4 - Continue ferrous sulfate Tobacco use - Counter Maker on cessation Dispo: Stable. Discharge home today. Follow up in [facility] next Wed. Eden to be removed at that time. Addendum - Attending - Attending Attestation Date/Time: 01/18/19 0644 I personally evaluated the patient and discussed the management with Dr. Garner I agree with the History, Examination, Assessment and Plan documented above with any addition or exceptions noted below. POD#3 Doing well. No complaints. Pain only with change in position. Wound vac in place. Functioning well. No s/sx of infection or wound complications. Lochia minimal. VSS reviewed. Afebrile. Fundus nontender, firm, below umbilicus 3T HIV pending. Ok to dc to home today. Follow up with PCP in 1 wk for wound vac removal. ER precautions discussed. Has support at home to help with and 18 month old child at home. Breast and bottle. Genevieve
[2019-01-18] MEDS: Ibuprofen 100 MG/5 ML UDCUP PO SCH (05:37)
[2019-01-18 08:26] VITALS: TEMP 98.8
[2019-01-18] MEDS: Docusate Calcium (SURFAK) 240 MG CAP PO SCH (09:52)
[2019-01-18] MEDS: Prenatal Vitamin 1 TAB PO SCH (09:52)
[2019-01-18] MEDS: Polyethylene Glycol 3350 17 GM Packet PO SCH (09:56)
[2019-01-18 10:19] LABS: HIV (1/2) Antibody/Antigen Non-Reactive (NonReactive); HIV 1/2 INDEX 0.06 S/CO (<1.00)
[2019-01-18 12:20] VITALS: BP 118/73
== END 2019-01-18 14:29 | disposition home or self-care (01) | DRG 788 ==
LOC: L&D 13:17 → 3SE 17:03
PROVIDERS: ADMIT Emergency Medicine; ATTEND Emergency Medicine
PROC: 10D00Z1 Extraction of Products of Conception, Low, Open Approach (ICD-10-PCS; principal; 2019-01-15)
PROC: 0JQ80ZZ Repair Abdomen Subcutaneous Tissue and Fascia, Open Approach (ICD-10-PCS; 2019-01-15)
DX: O34.211 Maternal care for low transverse scar from previous cesarean delivery (principal); O99.02 Anemia complicating childbirth; D64.9 Anemia, unspecified; O99.334 Smoking (tobacco) complicating childbirth; F17.200 Nicotine dependence, unspecified, uncomplicated; O99.89 Other specified diseases and conditions complicating pregnancy, childbirth and the puerperium; N73.6 Female pelvic peritoneal adhesions (postinfective); Z3A.39 39 weeks gestation of pregnancy; Z37.0 Single live birth
CPT/HCPCS: 36415; 51702; 85014; 85018; 85027; 85049; 86780; 86850; 86900; 86901; 87340; 87389; J1200

== ENCOUNTER 2020-01-13 18:50 | Emergency (ER) | payer OTHER | END 2020-01-13 19:21 | disposition home or self-care (01) | LOC: ERS 18:50 | DX: U07.1 COVID-19 (principal); F32.9 Major depressive disorder, single episode, unspecified; Z87.891 Personal history of nicotine dependence; Z79.899 Other long term (current) drug therapy | CPT/HCPCS: 99283 ==

== ENCOUNTER 2020-02-09 20:22 | Emergency (ER) | payer OTHER ==
[2020-02-09 20:55] LABS: Bilirubin Negative (Negative); Blood, Urine Negative (Negative); Clarity Clear (Clear); Glucose, Urine (Dipstick) Normal (Negative); Ketone, Urine Negative (Negative); Leukocyte Negative Leu/uL (Negative); Nitrite Negative (Negative); Protein, Urine (Dipstick) Negative (Neg-Trace); Specific Gravity, Urine 1.022 (1.002-1.036); pH, Urine 6.5 (5.0-9.0)
[2020-02-09 20:57] LABS: Pregnancy Test - Urine (BHCG) POSITIVE (Negative); Pregu Control Background? CLEAR/WHITE (CLR/WHITE); Pregu Control Bar Appear? YES (CONTROL BAR); Specific Gravity 1.022 (1.002-1.036)
[2020-02-09 20:57] LABS: #Basophils 0.1 thou/uL (0.0-0.2); #Eosinphils 0.2 thou/uL (0.0-0.7); #Lymphocytes 3.1 thou/uL (1.20-3.40); #Monocytes 0.6 thou/uL (0.11-0.59); #Neutrophils 6.5 thou/uL (1.40-6.50); %Basophils 1.3 % (0.0-1.0); %Eosinophils 1.9 % (0.0-10.0); %Lymphocytes 29.6 % (21.0-51.0); %Monocytes 5.9 % (0.0-10.0); %Neutrophils 61.3 % (42.0-75.0); Hemoglobin 11.9 g/dL (12.0-16.0); Mean Corpuscular HGB CONC 31.3 g/dL (32.0-36.0); Mean Corpuscular Hemoglobin 22.6 pg (27.0-31.0); Mean Corpuscular Volume 72.1 fL (78.0-98.0); Mean Platelet Volume 9.1 fL (7.4-10.4); Platelet Count 326 thou/uL (130-400); Red Blood Cell (RBC) Count 5.29 mill/uL (4.20-5.40); White Blood Cell (WBC) Count 10.6 thou/uL (4.8-10.8)
[2020-02-09 21:17] LABS: ALT (SGPT) 16 U/L (8-55); AST (SGOT) 13 U/L (5-34); Albumin 3.8 g/dL (3.5-5.0); Alkaline Phosphatase 69 U/L (40-110); Anion Gap 12 mmol/L (10-20); BUN (Urea Nitrogen) 4 mg/dL (7.0-18.7); Bilirubin, Total 0.3 mg/dL (0.2-1.2); Calc. Creatinine Clearance 0 mL/min (70-130); Calcium 8.5 mg/dL (7.8-10.44); Carbon Dioxide 23 mmol/L (22-29); Chloride 106 mmol/L (98-107); Globulin 3.4 g/dL (2.4-3.5); Glucose 113 mg/dL (70-105); Potassium 3.7 mmol/L (3.5-5.1); Protein, Total 7.2 g/dL (6.0-8.3); Sodium 137 mmol/L (136-145)
--- NOTE | 2020-02-10 07:50 | ULT ---
PRELIMINARY REPORT/DIRECT RADIOLOGY/EMERGENCY AFTER HOURS PROCEDURE: EXAM: US Obstetrical, Complete <14 weeks CLINICAL HISTORY: RLQ pain x 3 days (on/off), nausea, constipation, HCG 1013 TECHNIQUE: Transvaginal and transabdominal imaging of the maternal pelvis and a <14 week gestation [facility] image documentation. COMPARISON: None provided. FINDINGS: GESTATION: No evidence for intrauterine gestation UTERUS: Unremarkable. No myometrial mass. Measures 9.9 x 6.0 x 6.4 cm. The endometrium is thickened at 13.1 mm CERVIX: Closed. Unremarkable. OVARIES: No mass. The RIGHT side measures 7.5 x 4.3 x 3.7 cm and demonstrates a simple cyst measurin g 2.9 x 2.3 x 2.2 cm and a complex cyst measuring 3.4 x 2.8 x 2.6 cm. The LEFT ovary measures 3.9 x 1.4 x 2.0 cm FREE FLUID: RIGHT adnexal free fluid. IMPRESSION: No evidence for intra-or extrauterine gestation ELECTRONICALLY SIGNED BY: Geoff Nick MD Feb 10, 2020 12:19:48 AM FRONT DESK PERSON FINAL REPORT PELVIC ULTRASOUND: Transabdominal and endovaginal ultrasound of pelvis performed. Thickened endometrium. No evidence of intrauterine . Both ovaries demonstrate blood flow with color Doppler no active disease spectral analysis. Simple c yst right ovary measuring up to 3 cm and a more complex cyst measuring 2.5-3.5 cm. I am in agreement with the preliminary report. POS: AGW
== END 2020-02-10 00:45 | disposition home or self-care (01) ==
LOC: ERS 20:22
DX: O99.891 Other specified diseases and conditions complicating pregnancy (principal); R10.31 Right lower quadrant pain; O99.331 Smoking (tobacco) complicating pregnancy, first trimester; F17.210 Nicotine dependence, cigarettes, uncomplicated; O99.341 Other mental disorders complicating pregnancy, first trimester; F32.9 Major depressive disorder, single episode, unspecified; Z3A.01 Less than 8 weeks gestation of pregnancy; Z79.899 Other long term (current) drug therapy
CPT/HCPCS: 36415; 76856; 80053; 81003; 81025; 84702; 85025

== ENCOUNTER 2020-02-12 12:37 | Emergency (ER) | payer OTHER ==
[2020-02-12 14:05] LABS: BHCG - Serum POSITIVE (NEGATIVE); Pregs Control Background? CLEAR/WHITE (CLR/WHITE); Pregs Control Bar Appear? YES (CONTROL BAR)
== END 2020-02-12 14:34 | disposition left against medical advice (07) ==
LOC: ERS 12:37
DX: O99.891 Other specified diseases and conditions complicating pregnancy (principal); R10.9 Unspecified abdominal pain; O99.331 Smoking (tobacco) complicating pregnancy, first trimester; F17.210 Nicotine dependence, cigarettes, uncomplicated; Z79.899 Other long term (current) drug therapy
CPT/HCPCS: 36415; 84702; 84703; 99282

== ENCOUNTER 2020-02-23 01:55 | Emergency (ER) | payer OTHER ==
[2020-02-23] MEDS ORDERED: Cyclobenzaprine 10 MG TAB ONE (02:07)
[2020-02-23] MEDS ORDERED: Acetaminophen 500 MG TAB ONE (02:07)
== END 2020-02-23 02:50 | disposition home or self-care (01) ==
LOC: ERS 01:55
DX: O99.891 Other specified diseases and conditions complicating pregnancy (principal); M54.42 Lumbago with sciatica, left side; Z3A.01 Less than 8 weeks gestation of pregnancy; Z79.899 Other long term (current) drug therapy; F17.210 Nicotine dependence, cigarettes, uncomplicated
CPT/HCPCS: 99283

== ENCOUNTER 2020-03-02 09:40 | Outpatient (CLI) | payer OTHER ==
--- NOTE | 2020-03-02 10:47 | ULT ---
FIRST TRIMESTER OBSTETRICAL ULTRASOUND INDICATION: Rule out ectopic TECHNIQUE: Grayscale, M-mode Doppler, color Doppler and spectral Doppler images were obtained. Mar garza is focused on the clinical indication. Transabdominal exam was performed COMPARISON: Prior pelvic ultrasound dated February 01, 2020 FINDINGS: Uterus: The uterus measured 12.4 x 8.3 x 6.8cm.There is a 3.2 cm intramural fibroid within the anterior uteri ne fundus. Intrauterine gestation: Single. Yolk Sac:Identified the yolk sac measures 4.1 mm Pole :Identified with a crown-rump length of 12.3 mm heart rate: 155 bpm. Subchorionic Hemorrhage: There is a 0.6 x 1.5 x 0.5 cm hypoechoic crescentic hemorrhage overlying th e superior margin of the gestational sac. BIOMETRY: The crown-rump length: 12.3 mm. The mean sac diameter: 2.32 cm . The average gestational age by ultrasound is7 weeks and 4 dayswith estimated due date of October 15, 2020. The clinical age is8 weeks and 1 daywith estimated due date ofOctober 11, 2020. Ovaries: RIGHT OVARY: 6.2 x 3.7 x 3.6 cm. Mass: The complex cysts within the right ovary have decreased in size. The largest now measures 2.4 x 2.8 cm where previously the largest measured 3.4 x 2.8 cm. The additional complex cyst within the right ovary now measures 1.8 x 1.3 cm where previously the lesion measured 2.3 x 2.2 cm. Flow: Normal LEFT OVARY: 3.5 x 1.6 x 1.8 cm. Mass: None. Flow: Normal CUL-DE-SAC: No free fluid IMPRESSION: 1. Single live intrauterine gestation with size and dates as above. 2. Small subchorionic hemorrhage seen along the cephalad margin of the gestational sac. 3. Decrease in size of the complex cysts of the right ovary.
== END 2020-03-02 09:41 | disposition home or self-care (01) ==
LOC: BICULT 09:40
PROVIDERS: ATTEND Family Medicine
DX: Z33.1 Pregnant state, incidental (principal); O20.8 Other hemorrhage in early pregnancy; O34.81 Maternal care for other abnormalities of pelvic organs, first trimester; N83.291 Other ovarian cyst, right side; Z3A.01 Less than 8 weeks gestation of pregnancy
CPT/HCPCS: 76856; 93976

== ENCOUNTER 2020-03-16 20:54 | Emergency (ER) | payer OTHER ==
[2020-03-16 22:37] LABS: Bacteria/HPF 4+ HPF (None Seen); Bilirubin Negative (Negative); Blood, Urine Negative (Negative); Clarity Turbid (Clear); Glucose, Urine (Dipstick) Normal (Negative); Ketone, Urine Negative (Negative); Leukocyte 500 Leu/uL (Negative); Nitrite Negative (Negative); Protein, Urine (Dipstick) 30 mg/dL (Neg-Trace); Specific Gravity, Urine 1.029 (1.002-1.036); WBC/HPF Greater than 50 HPF (0-3); pH, Urine 6.5 (5.0-9.0)
[2020-03-16] MEDS ORDERED: metroNIDAZOLE 250 MG TAB ONE (23:04)
== END 2020-03-17 00:12 | disposition home or self-care (01) ==
LOC: ERS 20:54
DX: O23.591 Infection of other part of genital tract in pregnancy, first trimester (principal); B96.89 Other specified bacterial agents as the cause of diseases classified elsewhere; O23.41 Unspecified infection of urinary tract in pregnancy, first trimester; O99.331 Smoking (tobacco) complicating pregnancy, first trimester; F17.210 Nicotine dependence, cigarettes, uncomplicated; Z3A.09 9 weeks gestation of pregnancy
CPT/HCPCS: 81003; 81015; 87086; 99283

== ENCOUNTER 2021-05-16 05:31 | Emergency (ER) | payer OTHER, SELFPAY ==
[2021-05-16] MEDS ORDERED: Ketorolac Tromethamine 30 MG/ML VIAL ONE (05:43)
[2021-05-16] MEDS ORDERED: Lidocaine 1% (PF) 30 ML VIAL ONE (05:53)
[2021-05-16] MEDS ORDERED: Boostrix 0.5 ML (Tdap) VIAL ONE (05:53)
== END 2021-05-16 07:05 | disposition home or self-care (01) ==
LOC: ERS 05:31
DX: S41.112A Laceration without foreign body of left upper arm, initial encounter (principal); S21.212A Laceration without foreign body of left back wall of thorax without penetration into thoracic cavity, initial encounter; Z23 Encounter for immunization; X99.1XXA Assault by knife, initial encounter
CPT/HCPCS: 12035; 71045; 90471; 90715; 96372; J1885; J2001

== ENCOUNTER 2021-12-17 10:19 | Emergency (ER) | payer OTHER ==
[2021-12-17 10:59] LABS: #Eosinphils 0.2 thou/uL (0.0-0.7); #Lymphocytes 3.2 thou/uL (1.20-3.40); #Monocytes 0.6 thou/uL (0.11-0.59); #Neutrophils 4.8 thou/uL (1.40-6.50); %Basophils 0.3 % (0.0-1.0); %Eosinophils 2.6 % (0.0-10.0); %Lymphocytes 36.6 % (21.0-51.0); %Monocytes 6.6 % (0.0-10.0); %Neutrophils 53.9 % (42.0-75.0); Hemoglobin 12.4 g/dL (12.0-16.0); Mean Corpuscular HGB CONC 32.7 g/dL (32.0-36.0); Mean Corpuscular Hemoglobin 24.1 pg (27.0-31.0); Mean Corpuscular Volume 73.7 fl (78.0-98.0); Mean Platelet Volume 8.5 fL (7.4-10.4); Platelet Count 325 thou/uL (130-400); Red Blood Cell (RBC) Count 5.15 mill/uL (4.20-5.40); White Blood Cell (WBC) Count 8.9 thou/uL (4.8-10.8)
[2021-12-17 11:01] LABS: BHCG - Serum Negative (NEGATIVE); Pregs Control Background? CLEAR/WHITE (CLR/WHITE); Pregs Control Bar Appear? YES (CONTROL BAR)
[2021-12-17 11:18] LABS: MDiff Complete? YES; Microcytosis SLIGHT = 6-15 cells (100X) (0-5/hpf); Platelet Morphology Comment Appears Adequate; Target Cells SLIGHT = 2-5 cells (100X) (0-1/hpf); Tear Drops SLIGHT = 2-5 cells (100X) (0-1/hpf)
[2021-12-17 18:02] LABS: Chlamydia by PCR Not Detected (NotDetected); GC by PCR Not Detected (NotDetected)
== END 2021-12-17 13:03 | disposition home or self-care (01) ==
LOC: ERS 10:19
DX: N92.0 Excessive and frequent menstruation with regular cycle (principal); F17.210 Nicotine dependence, cigarettes, uncomplicated
CPT/HCPCS: 36415; 84703; 85025; 86900; 86901; 87480; 87491; 87510; 87591; 87660; 99284

== ENCOUNTER 2022-03-31 18:59 | Emergency (ER) | payer OTHER ==
[2022-03-31 20:05] LABS: #Eosinphils 0.2 thou/uL (0.0-0.7); #Lymphocytes 2.5 thou/uL (1.20-3.40); #Monocytes 0.5 thou/uL (0.11-0.59); #Neutrophils 5.3 thou/uL (1.40-6.50); %Basophils 0.4 % (0.0-1.0); %Eosinophils 2.1 % (0.0-10.0); %Lymphocytes 29.1 % (21.0-51.0); %Neutrophils 62.4 % (42.0-75.0); Hemoglobin 12.4 g/dL (12.0-16.0); Mean Corpuscular HGB CONC 32.9 g/dL (32.0-36.0); Mean Corpuscular Hemoglobin 24.2 pg (27.0-31.0); Mean Corpuscular Volume 73.4 fl (78.0-98.0); Mean Platelet Volume 9.5 fL (7.4-10.4); Platelet Count 267 10x3/uL (130-400); RBC Distribution Width 13.6 % (11.5-14.5); Red Blood Cell (RBC) Count 5.15 mill/uL (4.20-5.40); White Blood Cell (WBC) Count 8.5 10x3/uL (4.8-10.8)
[2022-03-31 20:09] LABS: BHCG - Serum Negative (NEGATIVE); Pregs Control Background? CLEAR/WHITE (CLR/WHITE); Pregs Control Bar Appear? YES (CONTROL BAR)
[2022-03-31 20:21] LABS: ALT (SGPT) 24 U/L (8-55); AST (SGOT) 19 U/L (5-34); Albumin 3.9 g/dL (3.5-5.0); Alkaline Phosphatase 71 U/L (40-110); Anion Gap 10 mmol/L (10-20); BUN (Urea Nitrogen) 9 mg/dL (7.0-18.7); Bilirubin, Total 0.5 mg/dL (0.2-1.2); Calc. Creatinine Clearance 0 mL/min (70-130); Calcium 8.8 mg/dL (7.8-10.44); Carbon Dioxide 27 mmol/L (22-29); Chloride 107 mmol/L (98-107); Estimated GFR 83; Globulin 3.2 g/dL (2.4-3.5); Glucose 77 mg/dL (70-105); Potassium 3.6 mmol/L (3.5-5.1); Protein, Total 7.1 g/dL (6.0-8.3); Sodium 140 mmol/L (136-145)
[2022-03-31 20:45] LABS: Bilirubin Negative (Negative); Blood, Urine Negative (Negative); Clarity Clear (Clear); Glucose, Urine (Dipstick) Normal (Negative); Ketone, Urine Negative (Negative); Leukocyte Negative Leu/uL (Negative); Nitrite Negative (Negative); Protein, Urine (Dipstick) 20 mg/dL (Neg-Trace); pH, Urine 6.5 (5.0-9.0)
== END 2022-03-31 22:12 | disposition home or self-care (01) ==
LOC: ERS 18:59
DX: R07.9 Chest pain, unspecified (principal); Z87.891 Personal history of nicotine dependence
CPT/HCPCS: 36415; 71045; 80053; 81003; 84484; 84703; 85025; 93005

== ENCOUNTER 2022-10-06 14:25 | Emergency (ER) | payer OTHER | END 2022-10-06 16:02 | disposition home or self-care (01) | LOC: ERS 14:25 | DX: S91.301D Unspecified open wound, right foot, subsequent encounter (principal); Z87.891 Personal history of nicotine dependence; W18.30XD Fall on same level, unspecified, subsequent encounter | CPT/HCPCS: 99282 ==

== ENCOUNTER 2023-01-09 01:34 | Emergency (ER) | payer OTHER ==
[2023-01-09 02:36] LABS: Bacteria/HPF 3+ HPF (None Seen); Bilirubin Negative (Negative); Blood, Urine Negative (Negative); CAUTI Indications for Culture Pelvic or flank pain; Clarity Turbid (Clear); Glucose, Urine (Dipstick) Normal (Negative); Ketone, Urine Negative (Negative); Leukocyte Negative Leu/uL (Negative); Nitrite Negative (Negative); Protein, Urine (Dipstick) 10 mg/dL (Neg-Trace); RBC/HPF 0-3 HPF (0-3); Specific Gravity, Urine 1.022 (1.002-1.036); Squamous Epithelial 21-50 HPF (0-3); WBC/HPF 0-3 HPF (0-3); pH, Urine 6.5 (5.0-9.0)
[2023-01-09 02:37] LABS: Pregnancy Test - Urine (BHCG) Negative (Negative); Pregu Control Background? CLEAR/WHITE (CLR/WHITE); Pregu Control Bar Appear? YES (CONTROL BAR); Specific Gravity 1.022 (1.002-1.036); Urine Culture Reflex No No
[2023-01-09] MEDS ORDERED: Cyclobenzaprine 10 MG TAB ONE (03:32)
[2023-01-09] MEDS ORDERED: Acetaminophen 500 MG TAB ONE (03:33)
[2023-01-09] MEDS ORDERED: Ketorolac Tromethamine 30 MG/ML VIAL ONE (03:34)
== END 2023-01-09 04:50 | disposition home or self-care (01) ==
LOC: ERS 01:34
DX: M54.6 Pain in thoracic spine (principal); F17.290 Nicotine dependence, other tobacco product, uncomplicated
CPT/HCPCS: 81001; 81025; 93005; 96374; J1885

== ENCOUNTER 2023-03-05 11:16 | Emergency (ER) | payer OTHER ==
[2023-03-05 14:14] LABS: SARS-CoV-2 NAA Rapid Test Not Detected (NotDetected)
== END 2023-03-05 14:55 | disposition home or self-care (01) ==
LOC: ERS 11:16
DX: R05.9 Cough, unspecified (principal); R11.2 Nausea with vomiting, unspecified; F17.290 Nicotine dependence, other tobacco product, uncomplicated
CPT/HCPCS: 99283

== ENCOUNTER 2023-07-18 06:36 | Emergency (ER) | payer OTHER ==
[2023-07-18 07:15] LABS: BHCG - Serum Negative (NEGATIVE); Pregs Control Background? CLEAR/WHITE (CLR/WHITE); Pregs Control Bar Appear? YES (CONTROL BAR)
[2023-07-18 07:17] LABS: INR-International Normal Ratio 1.1; PTT 31.2 sec (22.9-36.1)
[2023-07-18 07:20] LABS: ALT (SGPT) 22 U/L (8-55); AST (SGOT) 17 U/L (5-34); Albumin 3.7 g/dL (3.5-5.0); Alkaline Phosphatase 77 U/L (40-110); Anion Gap 13 mmol/L (10-20); BUN (Urea Nitrogen) 12 mg/dL (7.0-18.7); Bilirubin, Total 0.3 mg/dL (0.2-1.2); Calc. Creatinine Clearance 0 mL/min (70-130); Calcium 8.3 mg/dL (7.8-10.44); Carbon Dioxide 23 mmol/L (22-29); Chloride 107 mmol/L (98-107); Estimated GFR 83; Globulin 3.6 g/dL (2.4-3.5); Glucose 104 mg/dL (70-105); Potassium 3.8 mmol/L (3.5-5.1); Protein, Total 7.3 g/dL (6.0-8.3); Sodium 139 mmol/L (136-145)
[2023-07-18 07:28] LABS: #Basophils Less than 0.03 10x3/uL (0.0-0.2); %Basophils 0.3 % (0.0-1.0); %Eosinophils 2.4 % (0.0-10.0); %Monocytes 9.6 % (0.0-10.0); %Neutrophils 60.4 % (42.0-75.0); Hematocrit 36.4 % (36.0-47.0); Hemoglobin 11.2 g/dL (12.0-16.0); Mean Corpuscular HGB CONC 30.8 g/dL (32.0-36.0); Mean Corpuscular Hemoglobin 22.3 pg (27.0-31.0); Mean Corpuscular Volume 72.4 fL (78.0-98.0); Mean Platelet Volume 10.5 fL (7.4-10.4); Platelet Count 319 10x3/uL (130-400); RBC Distribution Width 16.2 % (11.5-14.5); Red Blood Cell (RBC) Count 5.03 mill/uL (4.20-5.40)
[2023-07-18 07:52] LABS: Bacteria/HPF None Seen HPF (None Seen); Bilirubin Negative (Negative); Blood, Urine 3+ (Negative); CAUTI Indications for Culture Pelvic or flank pain; Clarity Clear (Clear); Glucose, Urine (Dipstick) Normal (Negative); Ketone, Urine Negative (Negative); Leukocyte Negative Leu/uL (Negative); Nitrite Negative (Negative); Protein, Urine (Dipstick) 20 mg/dL (Neg-Trace); RBC/HPF Greater than 50 HPF (0-3); Specific Gravity, Urine 1.032 (1.002-1.036); Squamous Epithelial 0-3 HPF (0-3); WBC/HPF 0-3 HPF (0-3)
[2023-07-18 07:53] LABS: Urine Culture Reflex No No
[2023-07-18 07:59] LABS: Burr Cells SLIGHT = 2-5 cells HPF (0-1); Platelet Adequacy Comment Platelets Normal; Schistocytes SLIGHT = 2-5 cells HPF (0-1)
[2023-07-18] MEDS ORDERED: Ketorolac Tromethamine 30 MG (1 mL) VIAL ONE (08:00)
== END 2023-07-18 08:30 | disposition home or self-care (01) ==
LOC: ERS 06:36
DX: N94.6 Dysmenorrhea, unspecified (principal); D50.9 Iron deficiency anemia, unspecified; F17.290 Nicotine dependence, other tobacco product, uncomplicated
CPT/HCPCS: 36415; 80053; 81001; 84703; 85025; 85610; 85730; 96372; 99284; J1885

== ENCOUNTER 2024-01-11 11:09 | Emergency (ER) | payer OTHER ==
[2024-01-11 11:55] LABS: Hematocrit 36.5 % (36.0-47.0); Hemoglobin 11.2 g/dL (12.0-16.0); Mean Corpuscular HGB CONC 30.7 g/dL (32.0-36.0); Mean Corpuscular Hemoglobin 22.4 pg (27.0-31.0); Mean Corpuscular Volume 73.1 fL (78.0-98.0); Mean Platelet Volume 10.2 fL (7.4-10.4); Platelet Count 300 10x3/uL (130-400); RBC Distribution Width 16.2 % (11.5-14.5); Red Blood Cell (RBC) Count 4.99 mill/uL (4.20-5.40)
[2024-01-11 11:57] LABS: BHCG - Serum Negative (NEGATIVE); Pregs Control Background? CLEAR/WHITE (CLR/WHITE); Pregs Control Bar Appear? YES (CONTROL BAR)
[2024-01-11 12:02] LABS: ALT (SGPT) 9 U/L (8-55); AST (SGOT) 9 U/L (5-34); Albumin 3.4 g/dL (3.5-5.0); Alkaline Phosphatase 69 U/L (40-110); Anion Gap 11 mmol/L (10-20); BUN (Urea Nitrogen) 9 mg/dL (7.0-18.7); Bilirubin, Total 0.2 mg/dL (0.2-1.2); Calc. Creatinine Clearance 0 mL/min (70-130); Calcium 8.6 mg/dL (7.8-10.44); Carbon Dioxide 23 mmol/L (22-29); Chloride 110 mmol/L (98-107); Estimated GFR 93; Globulin 3.1 g/dL (2.4-3.5); Glucose 106 mg/dL (70-105); Lipase 23 U/L (8-78); Potassium 3.5 mmol/L (3.5-5.1); Protein, Total 6.5 g/dL (6.0-8.3); Sodium 140 mmol/L (136-145)
[2024-01-11 12:21] LABS: #Basophils Less than 0.03 10x3/uL (0.0-0.2); %Basophils 0.3 % (0.0-1.0); %Eosinophils 1.9 % (0.0-10.0); %Monocytes 6.9 % (0.0-10.0); %Neutrophils 51.5 % (42.0-75.0)
[2024-01-11 12:22] LABS: Burr Cells SLIGHT = 2-5 cells HPF (0-1); Elliptocytes SLIGHT = 2-5 cells HPF (0-1); Microcytosis SLIGHT = 6-15 cells HPF (0-5); Platelet Adequacy Comment Platelets Normal; Polychromasia SLIGHT = 2-3 cells HPF (0-2)
[2024-01-11 13:08] LABS: Bacteria/HPF None Seen HPF (None Seen); Bilirubin Negative (Negative); Blood, Urine Negative (Negative); CAUTI Indications for Culture Dysuria,urgency,freq; Clarity Clear (Clear); Glucose, Urine (Dipstick) Normal (Negative); Ketone, Urine Negative (Negative); Leukocyte Negative Leu/uL (Negative); Nitrite Negative (Negative); Protein, Urine (Dipstick) Negative (Neg-Trace); RBC/HPF 0-3 HPF (0-3); Specific Gravity, Urine 1.025 (1.002-1.036); Squamous Epithelial 0-3 HPF (0-3); WBC/HPF 0-3 HPF (0-3)
[2024-01-11 13:11] LABS: Urine Culture Reflex No No
== END 2024-01-11 13:25 | disposition home or self-care (01) ==
LOC: ERS 11:09
DX: R10.13 Epigastric pain (principal); F17.210 Nicotine dependence, cigarettes, uncomplicated; F17.290 Nicotine dependence, other tobacco product, uncomplicated
CPT/HCPCS: 36415; 76705; 80053; 81001; 83690; 84703; 85025

== ENCOUNTER 2024-08-01 04:06 | Emergency (ER) | payer OTHER | END 2024-08-01 05:04 | disposition home or self-care (01) | LOC: ERS 04:06 | DX: N64.89 Other specified disorders of breast (principal); N63.0 Unspecified lump in unspecified breast; F17.210 Nicotine dependence, cigarettes, uncomplicated; F17.290 Nicotine dependence, other tobacco product, uncomplicated | CPT/HCPCS: 99283 ==

== ENCOUNTER 2024-09-25 10:33 | Emergency (ER) | payer OTHER | END 2024-09-25 11:47 | disposition home or self-care (01) | LOC: ERS 10:33 | DX: R51.9 Headache, unspecified (principal); Z20.822 Contact with and (suspected) exposure to COVID-19; F17.210 Nicotine dependence, cigarettes, uncomplicated; F17.290 Nicotine dependence, other tobacco product, uncomplicated | CPT/HCPCS: 87428; 99283 ==